=== PATIENT | male | born 1985 | race Caucasian/White ===

== ENCOUNTER 2023-10-04 00:57 | Emergency (ER) | payer OTHER, SELFPAY ==
[2023-10-04 01:00] VITALS: BP 118/72
[2023-10-04 01:05] VITALS: BMI 24.5
[2023-10-04] MEDS: PROTONIX 40 MG PO (01:27)
--- NOTE | 2023-10-04 01:47 | ED.GENMED ---
History of Present Illness
General
Chief Complaint: Allergic Reaction
Source: patient and records
Exam Limitations: none
Time Seen by Provider: 10/04/23 00:59
Nursing documentation reviewed up to this point in time: agreed with
Travel History
Have you had any contact with someone who has COVID-19?: No
Do you have any symptoms of coronavirus? Fever > 100 degrees, chills, cough, shortness of breath, sore throat, loss of taste or smell, muscle aches, or headache?: No
History of Present Illness
History of Present Illness:
38-year-old male with a past medical history of anxiety/depression and schizophrenia who is currently homeless presents to the emergency room for evaluation of chest discomfort after eating. He says that he thinks he could be allergic to every food
'except for hospital food' because he is having burning in his chest after eating. He says that 'every time I eat I get burning in the center of my chest, but funnily enough when I come to the hospital to eat I have no problem.' He has been seen
many times in the emergency room over the past month (10 visits in the past month)�he did have recent bout of COVID which he recovered from. He has been seen for this symptom before and has had negative workup including blood work and troponin. He
has been treated with PPI but has not taken it 'because I do not like to take medicine.' He denies any chest pain at present. He denies any exertional symptoms. He has not any other complaints including shortness of breath, cough, fever, leg pain
or swelling.
Past History
Past History
ED Past Medical History: Psychiatric
ED Past Surgical History: None
Social History
Tobacco: Former smoker
Alcohol: None
Drug: Marijuana (Medical marijuana)
Personal: Single
Living: homeless
Employment: Not employed
Family History
Family History: Other (Noncontributory)
Review of Systems
Review of Systems
All Other Systems: ROS reviewed and negative except as documented in HPI and ROS
Constitutional: Denies fever or chills
EENT: Denies sore throat
Respiratory: Denies cough or trouble breathing
Cardiac: Reports chest pain; Denies diaphoresis or palpitations
ABD/GI: Denies abdominal pain, nausea or vomiting
: Denies flank pain
Musculoskeletal: Denies neck pain or back pain
Neurological: Denies headache, weakness or numbness
Phy Exam
Physical Exam
Physical Exam:
General: Awake, alert, oriented x3; no acute distress
Head: Normocephalic, atraumatic
Eyes: Conjunctiva normal, sclera anicteric
Throat: Airway intact, handling secretions
Neck: Trachea midline, supple without meningismus
Lungs: Clear to auscultation bilaterally, no wheezing, rales, rhonchi
Heart: Regular rate and rhythm, no murmurs, gallops, or rubs
Abd: Soft, non distended, nontender
Neuro: Cranial nerves grossly intact, speech fluid
Skin: no rash
Extremities: Warm well-perfused, no edema
Scores
Heart Failure Risk
Heart Failure Risk Score: Not Applicable
Heart Score for Chest Pain Patients
STEMI patient?: Not applicable
Withdrawal Assessment of Alcohol
Withdrawal Assessment Completed?: Not applicable
Course
Orders/Labs/Results
Orders:
Orders
10/04/23 01:16
Electrocardiogram (*1) Urgent
Reason for Study: Chest Pain
EKG- Treatment ONCE
Pantoprazole [Protonix] 40 mg PO NOW STA
Vital Signs
Initial and Last Documented VS:
Initial Vital Signs
Temp Pulse Resp BP Pulse Ox
36.8 C 64 20 118/72 97
10/04/23 01:00 10/04/23 01:00 10/04/23 01:00 10/04/23 01:00 10/04/23 01:00
Last Documented Vital Signs
Temp Pulse Resp BP Pulse Ox
36.8 C 64 20 118/72 97
10/04/23 01:00 10/04/23 01:00 10/04/23 01:00 10/04/23 01:00 10/04/23 01:00
MDM/Problems Addressed
Differential Diagnosis Includes:
GERD, gastritis, esophagitis; clinical suspicion for ACS, PE, aortic dissection or other emergent pathology is so low that I do not think further emergent testing for these diagnoses is indicated especially given multiple recent workups for
identical symptoms which have been reassuring
MDM/Problems Addressed:
38-year-old male presents for evaluation of postprandial burning in the chest. He says that every time he eats food--other than hospital food--he gets burning in the center of his chest. He has been told that it could be related to GERD in the
past and has been prescribed a PPI but says he does not take it because he does not like to take medication. He has no symptoms at present. He is requesting food here. His vital signs are normal and his exam is benign. His EKG shows no
concerning changes. Reviewed labs from previous visits for identical symptoms and his workups have been reassuring including negative troponins, normal chest x-ray. His symptoms sound totally consistent with GERD/esophagitis. I do not think there
is any indication for emergent blood work at this point in time. I think that he needs to be treated with a PPI and I explained at length that the best way to prevent his symptoms is to be compliant with his regimen. He indicated understanding.
He states that he does have the means to obtain the medication. We had a long discussion about his current homelessness and living situation�he assures me that he is staying at the [facility] and has no issues there. Provided
food and drink which he tolerated here. All questions answered.
*Pulse Oximetry
Patient hypoxic: no
*EKG
Interpreted by ED Provider?: Yes
Heart Rate: 62
Rate: normal
Rhythm: sinus
[place]: normal axis
Interval: normal interval
QRS Pattern: normal QRS
Ischemia: no ischemia
*Critical Care Note
Total Time (30-74mins, 75-104mins- exclusive of procedures): Not Applicable
Data Reviewed
Review of Other/Old Records Reveals: Labs, Records and Radiology Studies
Source: patient and records
Further Testing Considered But Not Given:
Considered repeating lab work including CBC, CMP, lipase, troponin; considered chest x-ray
Patient Management
Social determinants of health affecting care: Living situation
ED Attending Note
-
Portions of this chart may have been created with voice recognition software.� Occasional wrong word or��sound alike� substitutions may have occurred due to the inherent limitations of voice recognition software.
Discharge Plan
Departure
Patient Disposition: Home (Routine Discharge)
Date of Disposition: 10/04/23
Time of Disposition: 01:46
Patient with high blood pressure during this ER visit?: No
Discharge Problem:
Heartburn
Instructions: Acid Reflux and GERD in Adults (DC)
Prescriptions:
New
pantoprazole 40 mg tablet,delayed release (DR/EC)
40 mg PO DAILY Qty: 30 0RF
No Action
levothyroxine [Levothroid] 50 MCG tablet
50 mcg PO Daily
doxycycline hyclate 100 MG capsule
100 mg PO Q12 Qty: 20 0RF
ibuprofen 600 MG tablet
600 mg PO Q6HPRN PRN (Reason: pain) Qty: 20 0RF
pantoprazole [Protonix] 20 mg tablet,delayed release (DR/EC)
20 mg PO DAILY Qty: 20 0RF
levothyroxine 50 mcg tablet
50 mcg PO DAILY Qty: 90 0RF
Referrals:
[facility] - Call in 1-3 days for appt (You should follow-up in the free clinic for continued management of your symptoms.)
NONE,* [Family Provider] -
Activity Restrictions/Additional Instructions:
Thank you for visiting the Emergency Department at [facility].
1. Please schedule a follow up appointment as directed. Call first thing tomorrow morning to make an appointment.
2. If indicated, please take your medications as instructed and indicated on discharge paperwork.
3. If any of your symptoms do not improve, or persist, or become more severe within 6-12 hours, please return to the emergency department for further care.
4. Please return to the emergency department if you develop a headache, neck pain/stiffness, fever greater than 100.4F, chest pain, shortness of breath, persistent nausea, vomiting, slurred speech, difficulty walking, numbness/tingling, weakness,
signs of infection or any other symptoms that are worrisome to you.
Please call [phone] if you have any questions.
Interventions
Interventions:
*Risk Screen - Suicide Last Done: 10/04/23 01:00
*General Assessment Last Done: 10/04/23 01:00
*Neglect/Abuse Screening Last Done: 10/04/23 01:00
ED- Fall Risk Assessment Last Done: 10/04/23 01:04
ED- Cardiac Assessment Last Done: 10/04/23 01:04
ED- Pulmonary Assessment Last Done: 10/04/23 01:04
ED-Skin Assessment Last Done: 10/04/23 01:04
== END 2023-10-04 02:08 | disposition home or self-care (01) ==
LOC: EMR 00:57
PROVIDERS: EMERGENCY PHYSICIAN Emergency Medicine
DX: R12 Heartburn (principal); Z87.891 Personal history of nicotine dependence; F20.9 Schizophrenia, unspecified; Z59.00 Homelessness unspecified
CPT/HCPCS: 99283; 93005

== ENCOUNTER 2023-10-11 18:36 | Emergency (ER) | payer OTHER, SELFPAY ==
--- NOTE | 2023-10-11 20:13 | ED.GENMED ---
History of Present Illness
General
Chief Complaint: Back Pain
Source: patient
Exam Limitations: none
Time Seen by Provider: 10/11/23 19:21
Travel History
Have you had any contact with someone who has COVID-19?: No
Do you have any symptoms of coronavirus? Fever > 100 degrees, chills, cough, shortness of breath, sore throat, loss of taste or smell, muscle aches, or headache?: No
History of Present Illness
History of Present Illness:
This is a 38 year old male that comes in with c/o left testicular pain. States that he has nerve damage in his back and there is muscle deterioration. States that when he runs it helps but sitting and walking he feels worse. state that he started
with this pinching groin pain behind the testicles and this has been going on since the summer. States that tonight it just got under his skin so he came in. Denies any fever, chills, chest pain, SOB, abd pain, nausea, vomiting, diarrhea, headache,
dizziness, urinary burning.
Past History
Past History
ED Past Medical History: Psychiatric (Anxiety, Depression. Denies PTSD and schizophrenia) and Other (Chronic back pain, L4-S1 nerve damage, DDD)
ED Past Surgical History: None
Social History
Tobacco: Former smoker
Alcohol: None
Drug: Marijuana (Medical marijuana)
Personal: Single
Living: homeless
Employment: Not employed
Family History
Family History: Other (Noncontributory)
Review of Systems
Review of Systems
All Other Systems: ROS reviewed and negative except as documented in HPI and ROS
Constitutional: Reports no symptoms; Denies fever or chills
EENT: Reports no symptoms
Respiratory: Reports no symptoms
Cardiac: Reports no symptoms
ABD/GI: Reports no symptoms; Denies abdominal pain, nausea, vomiting or diarrhea
: Reports other (Left testicular pain); Denies dysuria, frequency or urgency
Musculoskeletal: Reports no symptoms
Skin: Reports no symptoms
Neurological: Reports no symptoms; Denies dizzy or headache
Psychiatric: Reports no symptoms
Phy Exam
General Physical Exam
General Presentation: well appearing and no apparent distress (patient able to walk to another room for Testicular exam without difficulty)
General age: appears stated age
General Skin: warm and dry
General Habitus: poor hygiene
General Mental: alert
General Hydration: appears well hydrated
ENT Exam
ENT Exam: TM's normal, pharynx normal and neck supple
Eye Exam
Eye Exam: EOMI
Cardiovascular Exam
Cardiovascular Exam: regular rate/rhythm, no edema, no murmur and normal peripheral pulses
Pulmonary Exam
Pulmonary Exam: lungs clear, no respiratory distress, no rales, chest non tender, no crackles, no rhonchi, no wheezing and no cough
Gastrointestinal Exam
Gastrointestinal Exam: normal bowel sounds, non tender, soft, no organomegaly, no pulsatile mass and non distended
Genitourinary Exam Male
Exam Male: circumcised, no discharge, normal external genitalia, normal testicular exam, no evidence of trauma, no lesions, no testicular swelling and no testicular tenderness
Musculoskeletal Exam
Musculoskeletal Exam: full ROM and no edema
Skin Exam
Skin Exam: normal color, warm/dry, no rash and no petechia
Psychiatric Exam
Psychiatric Exam: normal mood/affect
Course
Orders/Labs/Results
Orders:
Orders
10/11/23 19:55
Scrotum US [US Scrotum] Urgent
Comment:
Reason For Exam: Left testicular pain
Vital Signs
Initial and Last Documented VS:
Initial Vital Signs
Temp Pulse Resp BP Pulse Ox
98.5 F 73 16 128/66 98
10/11/23 18:58 10/11/23 18:58 10/11/23 18:58 10/11/23 18:58 10/11/23 18:58
Last Documented Vital Signs
Temp Pulse Resp BP Pulse Ox
98.5 F 73 16 128/66 98
10/11/23 18:58 10/11/23 18:58 10/11/23 18:58 10/11/23 18:58 10/11/23 18:58
MDM/Problems Addressed
Differential Diagnosis Includes:
Epididymitis,
MDM/Problems Addressed:
This is a 38 year old male that comes in with c/o left testicular pain that started in the summer. states that tonight it just got under his skin so he thought he better get checked
will get US.
Back into see patient. Explained that he has very small hydroceles. Otherwise normal. Patient can follow up with the family doctor of a Urologist. Patient to return with any concerns
Chronic conditions affecting care:
NA
Acute Exacerbation and/or Progression of Chronic Illness:
NA
*Radiology
Radiology exam reviewed: radiology read reviewed (US-Moderate left and small right hydroceles. Small left appendix testes. No sonographic evidence for testicular torsion, orchitis or epididymitis)
*Pulse Oximetry
Patient hypoxic: no
*EKG
Interpreted by ED Provider?: NA
Rate: EKG- N/A
*Tug Boat Captain Interpretation
Rate: Tug Boat Captain- N/A
*Critical Care Note
Total Time (30-74mins, 75-104mins- exclusive of procedures): Not Applicable
ED Attending Note
-
Portions of this chart may have been created with voice recognition software.� Occasional wrong word or��sound alike� substitutions may have occurred due to the inherent limitations of voice recognition software.
Discharge Plan
Departure
Patient Disposition: Home (Routine Discharge)
Date of Disposition: 10/11/23
Time of Disposition: 21:51
Patient with high blood pressure during this ER visit?: No
Condition: Good
Covid-19: Not Applicable
Discharge Problem:
Hydrocele, left
Instructions: Hydrocele/Varicocele (DC)
Prescriptions:
No Action
levothyroxine [Levothroid] 50 MCG tablet
50 mcg PO Daily
doxycycline hyclate 100 MG capsule
100 mg PO Q12 Qty: 20 0RF
ibuprofen 600 MG tablet
600 mg PO Q6HPRN PRN (Reason: pain) Qty: 20 0RF
pantoprazole [Protonix] 20 mg tablet,delayed release (DR/EC)
20 mg PO DAILY Qty: 20 0RF
levothyroxine 50 mcg tablet
50 mcg PO DAILY Qty: 90 0RF
pantoprazole 40 mg tablet,delayed release (DR/EC)
40 mg PO DAILY Qty: 30 0RF
Referrals:
NONE,* [Family Provider] -
Activity Restrictions/Additional Instructions:
As discussed, you have Bilateral hydroceles. This can be a normal finding. Please follow up with the family doctor of the Urologist for further evaluation. You may use Ibuprofen 600mg every 6hours with food for pain. IF YOU HAVE ANY OTHER CONCERNS
PLEASE RETURN TO THE EMERGENCY ROOM.
Interventions
Interventions:
*Risk Screen - Suicide Last Done: 10/11/23 18:58
*Neglect/Abuse Screening Last Done: 10/11/23 18:58
[2023-10-11] MEDS: MOTRIN 600 MG PO (22:06)
== END 2023-10-11 22:08 | disposition home or self-care (01) ==
LOC: EMR 18:36
PROVIDERS: EMERGENCY PHYSICIAN Student in an Organized Health Care Education/Training Program
DX: N43.3 Hydrocele, unspecified (principal); F41.9 Anxiety disorder, unspecified; F32.A Depression, unspecified; Z87.891 Personal history of nicotine dependence
CPT/HCPCS: 99284; 76870; 93976

== ENCOUNTER 2023-10-12 10:45 | Emergency (ER) | payer OTHER, SELFPAY ==
[2023-10-12 10:50] VITALS: BP 133/74
--- NOTE | 2023-10-12 12:59 | ED.GENMED ---
History of Present Illness
General
Chief Complaint: Male Genito-Urinary Symptoms
Source: patient
Exam Limitations: none
Time Seen by Provider: 10/12/23 12:41
Travel History
Have you had any contact with someone who has COVID-19?: No
Do you have any symptoms of coronavirus? Fever > 100 degrees, chills, cough, shortness of breath, sore throat, loss of taste or smell, muscle aches, or headache?: No
History of Present Illness
History of Present Illness:
38-year-old male presents for evaluation. He was here last evening for the same with testicular discomfort. Diagnosed with hydrocele. He is looking for us to examine drainage today. No other complaints at this time
Past History
Past History
ED Past Medical History: Psychiatric (Anxiety, Depression. Denies PTSD and schizophrenia) and Other (Chronic back pain, L4-S1 nerve damage, DDD)
ED Past Surgical History: None
Social History
Tobacco: Former smoker
Alcohol: None
Drug: Marijuana (Medical marijuana)
Personal: Single
Living: homeless
Employment: Not employed
Family History
Family History: Other (Noncontributory)
Phy Exam
Physical Exam
Physical Exam:
General: Well-appearing male no acute respiratory distress
HEENT: Normocephalic atraumatic
Neurologic alert normal gait conversing appropriately
Course
Orders/Labs/Results
Orders:
Orders
10/12/23 12:59
Ibuprofen [Motrin] 600 mg PO NOW STA
Vital Signs
Initial and Last Documented VS:
Initial Vital Signs
Temp Pulse Resp BP Pulse Ox
98.4 F 74 16 133/74 98
10/12/23 10:50 10/12/23 10:50 10/12/23 10:50 10/12/23 10:50 10/12/23 10:50
Last Documented Vital Signs
Temp Pulse Resp BP Pulse Ox
98.4 F 74 16 133/74 98
10/12/23 10:50 10/12/23 10:50 10/12/23 10:50 10/12/23 10:50 10/12/23 10:50
MDM/Problems Addressed
Differential Diagnosis Includes:
Review of prior records demonstrates moderate left and small right hydrocele. Explained to patient there is no emergent procedure that indicated through the emergency room. He states has been dealing with this for several months. Recommended
scrotal support with tight fitting underwear ibuprofen for pain and follow-up with urology. Stable for discharge. Symptoms are not new or different in any way from yesterday
*Critical Care Note
Total Time (30-74mins, 75-104mins- exclusive of procedures): Not Applicable
ED Attending Note
-
Portions of this chart may have been created with voice recognition software.� Occasional wrong word or��sound alike� substitutions may have occurred due to the inherent limitations of voice recognition software.
Discharge Plan
Departure
Patient Disposition: Home (Routine Discharge)
Date of Disposition: 10/12/23
Time of Disposition: 13:01
Patient with high blood pressure during this ER visit?: No
Discharge Problem:
Hydrocele
Prescriptions:
No Action
levothyroxine [Levothroid] 50 MCG tablet
50 mcg PO Daily
doxycycline hyclate 100 MG capsule
100 mg PO Q12 Qty: 20 0RF
ibuprofen 600 MG tablet
600 mg PO Q6HPRN PRN (Reason: pain) Qty: 20 0RF
pantoprazole [Protonix] 20 mg tablet,delayed release (DR/EC)
20 mg PO DAILY Qty: 20 0RF
levothyroxine 50 mcg tablet
50 mcg PO DAILY Qty: 90 0RF
pantoprazole 40 mg tablet,delayed release (DR/EC)
40 mg PO DAILY Qty: 30 0RF
Referrals:
Harjinder Mckeon MD [Active] -
NONE,* [Family Provider] -
Activity Restrictions/Additional Instructions:
Use tight fitting underwear for scrotal support. Continue with Tylenol or ibuprofen for pain. Follow-up with urology for further evaluation
Interventions
Interventions:
*Risk Screen - Suicide Last Done: 10/12/23 12:24
*General Assessment Last Done: 10/12/23 12:24
*Neglect/Abuse Screening Last Done: 10/12/23 12:24
*ED COVID-19 Vaccine History Last Done: 10/12/23 10:50
ED-Male Genitourinary Assessment Last Done: 10/12/23 12:24
[2023-10-12] MEDS: MOTRIN 600 MG PO (13:17)
[2023-10-12 14:03] VITALS: BP 109/56
[2023-10-12 14:04] VITALS: BP 109/56
== END 2023-10-12 15:17 | disposition home or self-care (01) ==
LOC: EMR 10:45
PROVIDERS: EMERGENCY PHYSICIAN Emergency Medicine
DX: N43.3 Hydrocele, unspecified (principal); F41.8 Other specified anxiety disorders; Z87.891 Personal history of nicotine dependence
CPT/HCPCS: 99282

== ENCOUNTER 2023-11-14 08:20 | Inpatient (IN) | payer OTHER, SELFPAY ==
[2023-11-11] VITALS (12 sets, daily range): BP systolic 80–122; BP diastolic 40–64; PULSE 90–94; BMI 22.4
[2023-11-11 15:11] LABS: % Basophils 0.1 % (0-2); % Eosinophils 0.4 % (0-6); % Immature Granulocytes 0.1 % (0-0.5); % Lymphocytes 1.6 % (20.5-51.1); % Monocytes 5.4 % (1.7-9.3); % Neutrophils 92.4 % (42.2-75.2); Absolute Lymphocytes 0.1 10^3/uL (1.2-3.4); Absolute Monocytes 0.4 10^3/uL (0.1-0.6); Absolute Neutrophils 6.5 10^3/uL (1.4-6.5); Hematocrit 42.6 % (39.0-52.0); Hemoglobin 15.3 g/dL (13.0-18.0); Mean Corp Hgb Conc. 35.9 g/dL (33.0-37.0); Mean Corpuscular Hgb 28.9 pg (27.0-31.0); Mean Corpuscular Volume 80.4 fL (80.0-94.0); Mean Platelet Volume 9.7 fL (7.4-10.4); Nucleated Red Blood Cells % 0 % (-); Platelet Count 233 10^3/uL (130-400); Red Cell Dist. Width 12.9 % (11.5-14.5); White Blood Cell Count 7.1 10^3/uL (4.8-10.8)
[2023-11-11 15:32] LABS: ALT (SGPT) 13 U/L (0-50); AST (SGOT) 26 U/L (17-59); Albumin 4.8 g/dl (3.5-5.0); Alkaline Phosphatase 51 U/L (38-126); Blood Urea Nitrogen 31 mg/dl (9-20); Calcium 9.2 mg/dl (8.4-10.2); Carbon Dioxide 25 mmol/L (22-30); Chloride 105 mmol/L (98-107); Glucose 111 mg/dl (70-99); Potassium 4.4 mmol/L (3.5-5.1); Sodium 139 mmol/L (135-145); Total Bilirubin 1.4 mg/dl (0.2-1.3); Total Protein 7.4 g/dl (6.3-8.2); eGFR > 60.00
--- NOTE | 2023-11-11 15:58 | ED.GENMED ---
History of Present Illness
General
Chief Complaint: Fainting Sensation
Source: patient
Exam Limitations: none
Time Seen by Provider: 11/11/23 15:08
Nursing documentation reviewed up to this point in time: agreed with
Travel History
Have you had any contact with someone who has COVID-19?: No
Do you have any symptoms of coronavirus? Fever > 100 degrees, chills, cough, shortness of breath, sore throat, loss of taste or smell, muscle aches, or headache?: No
History of Present Illness
History of Present Illness:
38-year-old male presents emergency department due to feeling lightheaded with a low blood pressure, he thinks he had a syncope episode. He was at the urology office to be seen for a known hydrocele. He has chills. He has bodyaches. No focal
pain.
Past History
Past History
ED Past Medical History: Psychiatric (Anxiety, Depression. Denies PTSD and schizophrenia) and Other (Chronic back pain, L4-S1 nerve damage, DDD)
ED Past Surgical History: None
Social History
Tobacco: Former smoker
Alcohol: None
Drug: Marijuana (Medical marijuana)
Personal: Single
Living: homeless
Employment: Not employed
Family History
Family History: Other (Noncontributory)
Review of Systems
Review of Systems
Allergies reviewed?: Yes
All Other Systems: Not applicable
Constitutional: Reports chills
EENT: Reports no symptoms
Respiratory: Reports no symptoms
Cardiac: Reports syncope
ABD/GI: Reports nausea and vomiting
: Reports no symptoms
Musculoskeletal: Reports muscle pain
Skin: Reports no symptoms
Neurological: Reports no symptoms
Endocrine: Reports no symptoms
Hematologic/Lymphatic: Reports no symptoms
Psychiatric: Reports no symptoms
Phy Exam
Physical Exam
Physical Exam:
Physical Exam
General: Shivering, appears uncomfortable, afebrile
Neck: supple. no meningeal signs. normal posterior pharynx
Heart: s1/s2 regular rate and rhythm, no murmur. equal radial
pulses.
HEENT: Pupils equal round reactive to light, EOMI
Lungs: no acute respiratory distress. clear bilaterally
Abdomen: normal bowel sounds. not tender. no CVAT
Neuro: alert and oriented. no focal neurological deficits cranial nerves II through XII intact
Skin: no rash
Psychiatric: well kept. interactive and cooperative
Extremities: no edema. no calf tenderness. negative homans. good distal pulses
Course
Orders/Labs/Results
Orders:
Orders
11/11/23 14:59
EKG [Electrocardiogram (*1)] Urgent
Reason for Study: Fatigue / Weakness
11/11/23 15:00
EKG- Treatment ONCE
11/11/23 15:05
Complete Blood Count/With Diff Urgent
Comprehensive Metabolic Panel Urgent
11/11/23 15:36
Lactic Acid Q4H
Comment: CANCEL 2nd LACTIC ACID IF 1st LACTIC ACID IS LESS THAN 2
Blood Culture Q30M
SAMANTHA Source: Blood/Venous
Specimen Description:
11/11/23 15:37
COVID-19 Antigen Urgent
Source: Nasal Swab
Blood Culture Q30M
SAMANTHA Source: Blood/Venous
Specimen Description:
Influenza A+B Rapid Molecular Urgent
SAMANTHA Source: Nasal Swab
Specimen Description:
11/11/23 16:11
CR Chest - 2 Views Urgent
Comment:
Reason For Exam: chills, syncope
11/11/23 17:03
0.9% Sodium Chloride 1000 ml [Nss] 1,000 ml IV BOLUS
Acetaminophen [Tylenol] 650 mg PO NOW STA
11/11/23 19:28
Urinalysis Reflex To Culture Urgent
Date Specimen was Collected: 11/11/23
Time Specimen was Collected: 19:22
11/11/23 20:20
0.9% Sodium Chloride 1000 ml [Nss] 1,000 ml IV BOLUS
11/11/23 20:33
Admit/Transfer Patient As Directed
Co-Sign Provider:
Level of Care: Observation services
Assign to:: Telemetry
Physician / Group: Milton
Diagnosis: Syncope; Fever
Reason for Telemetry: Syncope
Date to Stop Telemetry: 11/13/23
Time to Stop Telemetry: 11:00
11/11/23 20:34
Code Status As Directed
Resuscitation Status: Full Code
11/11/23 20:57
Giardia/Cryptosporidium Ag Urgent
SAMANTHA Source: Feces/Stool
Specimen Description:
Norovirus by PCR Urgent
SAMANTHA Source: Feces/Stool
Specimen Description:
Stool Culture Urgent
SAMANTHA Source: Feces/Stool
Specimen Description:
Stool For WBC Urgent
SAMANTHA Source: Feces/Stool
Specimen Description:
11/13/23 11:00
DC Protocol for Telemetry ONCE
Abnormal Lab Results
11/11/23 11/11/23
15:05 19:28
Absolute Lymphs (auto) 0.1 L 10^3/uL
(1.2-3.4)
Neutrophils % 92.4 H %
(42.2-75.2)
Lymphocytes % 1.6 L %
(20.5-51.1)
BUN 31 H mg/dl
(9-20)
Glucose 111 H mg/dl
(70-99)
Total Bilirubin 1.4 H mg/dl
(0.2-1.3)
Urine Ketones 3+ A
(Negative)
Urine Bilirubin 1+ A
(Negative)
11/11/23 15:05
11/11/23 15:05
Vital Signs
Initial and Last Documented VS:
Initial Vital Signs
Temp Pulse Resp BP Pulse Ox
98.0 F 89 18 80/47 100
11/11/23 14:33 11/11/23 14:33 11/11/23 14:33 11/11/23 14:33 11/11/23 14:33
Last Documented Vital Signs
Temp Pulse Resp BP Pulse Ox
101.7 F H 72 17 94/40 93
11/11/23 17:02 11/11/23 22:30 11/11/23 22:30 11/11/23 22:06 11/11/23 22:30
MDM/Problems Addressed
Differential Diagnosis Includes:
Sepsis, gastroenteritis, syncope, hypovolemia
MDM/Problems Addressed:
38-year-old male with hypovolemia, nausea vomiting, suspect possible GI virus as source of fever, no other focal infectious source found. No dysrhythmia, suspect syncope was related to patient hypovolemia. Admit to hospitalist
Chronic conditions affecting care: Psychiatric illness
Acute Exacerbation and/or Progression of Chronic Illness: Psychiatric illness (Anxiety, depression PTSD, schizophrenia)
*Radiology
Radiology exam reviewed: preliminary read by ED provider (Chest x-ray no acute findings) and radiology read reviewed (Chest x-ray no acute)
*Pulse Oximetry
Patient hypoxic: no
*EKG
Interpreted by ED Provider?: Yes
EKG Intrepretation Date: 11/11/23
EKG Intrepretation Time: 15:09
Interpretation: normal
Comparison EKG: no changes
Heart Rate: 84
Rate: normal
Rhythm: sinus
[place]: normal axis
Interval: normal interval
QRS Pattern: normal QRS
Ischemia: no ischemia
*Patient Biller Interpretation
Rate: normal
Interpretation: normal
Heart Rate: 80
Rhythm: sinus
*Critical Care Note
Total Time (30-74mins, 75-104mins- exclusive of procedures): Not Applicable
Patient Management
Social determinants of health affecting care: Living situation
Discussion with other providers: Hospitalist
Escalation/DeEscalation of care consider admission/obs:
Admit indicated
ED Attending Note
-
Portions of this chart may have been created with voice recognition software.� Occasional wrong word or��sound alike� substitutions may have occurred due to the inherent limitations of voice recognition software.
Discharge Plan
Departure
Patient Disposition: Admit
Date of Disposition: 11/11/23
Time of Disposition: 19:41
Presentation/result/management discussed w/ accepting MD/DO: Hospitalist
Patient with high blood pressure during this ER visit?: No
Condition: Fair
Discharge Problem:
Syncope, Fever
Interventions
Interventions:
*Risk Screen - Suicide Last Done: 11/11/23 16:05
*Neglect/Abuse Screening Last Done: 11/11/23 16:05
*ED COVID-19 Vaccine History Last Done: 11/11/23 14:33
ED- Cardiac Assessment Last Done: 11/11/23 15:16
ED- Neurological Assessment Last Done: 11/11/23 15:16
[2023-11-11 15:59] LABS: Lactic Acid 1.2 mmol/L (0.7-2.0)
[2023-11-11 16:02] LABS: COVID-19 Antigen Negative (Negative)
[2023-11-11] MEDS: TYLENOL 650 MG PO (17:07)
[2023-11-11] MEDS: NSS 1000 IV ×3 (17:10→23:37)
[2023-11-11 19:38] LABS: Urine Albumin Negative (Neg - Trace); Urine Bilirubin 1+ (Negative); Urine Character Clear (Clear); Urine Color Yellow; Urine Glucose Negative (Negative); Urine Ketone 3+ (Negative); Urine Leukocyte Negative (Negative); Urine Nitrite Negative (Negative); Urine Occult Blood Negative (Negative); Urine Specific Gravity 1.015 (<1.030); Urine Urobilinogen Negative (Neg - 1+)
--- NOTE | 2023-11-11 20:58 | HPS.HSE ---
Addendum entered and electronically signed by Jono Rose DO 11/11/23 21:40:
Patient seen and examined independently. Agree with findings and plan as set forth by Cinda Truong PA-C.
Patient is a 38y M with PMH significant for Schizophrenia who presents to ED following syncopal episode. Patient states that he developed myalgias, fatigue and profuse N/V/D starting this AM. He reports innumerable episodes of emesis and loose
/ watery / non-bloody stools since that time. He was at a doctor's visit this afternoon when he became lightheaded and had a syncopal episode in their office. He was sent to the ED for further evaluation.
Ass:
Syncope - Likely Orthostatic +/- Vasovagal
Gastroenteritis
Hypovolemia secondary to the above
Hydrocele
Schizophrenia
Plan:
Admit for further evaluation and treatment.
Aggressive IVF support.
Follow orthostatic signs.
Check stool studies - suspect Norovirus or similar.
Follow for clinical improvement.
Original Note:
Family Physician
-
Family Physician: * NONE
Chief Complaint
-
Syncope
History of Present Illness
Patient is a 38 y/o male with PMH of B/L scrotal hydroceles who presents complaining of nausea, vomiting, diarrhea, fever, lightheadedness, and body aches since this morning. Patient states that all of his symptoms began after eating an packaged
apple/oatmeal bar at the [facility] early this morning. Shortly after he developed vomiting with profuse non-bloody diarrhea. He reports an innumerable number of episodes. He proceeded to get on a bus to the [place] urology office for an
appointment regarding hydroceles as he had already had reschedule the appointment multiple times. When he arrived at the urology office he nearly passed out. Office staff found his blood pressure to be low and sent him to the ED via ambulance. He
admits that dizziness has not subsided and he feels mild abdominal pain. He denies confusion, palpitations, chest pain, and SOB.
Medical History
Past Medical History
Past Medical History: Reports None
Past Surgical History: Reports None
Social History
Tobacco: Non-smoker
Alcohol: None
Drug: None
Family History
Family History: Not pertinent
Allergies / Home Medications
Allergies reflects when Allergies were last updated in [facility].
Home Medications with original date entered in [facility]
Allergy/Medication List:
Allergies
Allergy/AdvReac Type Severity Reaction Status Date / Time
adhesive Allergy Swelling Verified 11/11/23 14:37
Home Medications
No Meds [No Current Medications] 11/11/23
Review of Systems
-
A 12 point ROS was completed and negative except as noted: Yes
Constitutional: Reports Fever
Respiratory: Denies Cough or Trouble Breathing
Cardiac: Denies Chest Pain or Palpitations
Abdomen/GI: Reports See HPI
Physical Exam
Vital Signs
Vital Signs
Temp Pulse Resp BP Pulse Ox
101.7 F H 80 21 95/40 93
11/11/23 17:02 11/11/23 16:15 11/11/23 16:15 11/11/23 20:00 11/11/23 20:45
Physical Exam
General: Comfortable and Conversant
HEENT: NormoCephalic and Anicteric
Respiratory: Clear and Non Labored Respirations
Cardiac: S1/S2 and Regular Rhythm
GI: Soft and Non Tender
Rectal: Deferred by Provider
Genito-urinary: Deferred by me
Musculoskeletal: Clubbing, No Clubbing, No Cyanosis and No Edema
Skin: Warm and Dry
Neuro: Awake, Alert, Oriented and Nonfocal/grossly intact
Laboratory Results
-
11/11/23 15:05
11/11/23 15:05
Laboratory Results
Lactic Acid 1.2 mmol/L (0.7-2.0) 11/11/23 15:36
Total Bilirubin 1.4 mg/dl (0.2-1.3) H 11/11/23 15:05
AST 26 U/L (17-59) 11/11/23 15:05
ALT 13 U/L (0-50) 11/11/23 15:05
Alkaline Phosphatase 51 U/L (38-126) 11/11/23 15:05
Data Reviewed
-
Diagnostic Radiology: Report Reviewed by me
Lab Data: Labs Reviewed by me
Impression/Plan
-
Gastroenteritis, suspect viral in nature
-Check stool studies including norovirus
-Allow clear liquids
-Continue supportive care with IVFs
Syncope secondary to Hypotension in setting of GI losses
-Continue IVFs
-Monitor blood pressure and orthostatic vital signs
DVT proph: SCDs
Code Status: Full Code
--- NOTE | 2023-11-12 00:30 | PTCARENOTE ---
Pt arrived onto unit on r.a and on tele, pt was able to walk from stretcher to standing scale and then to bed, pt is in bed resting, call rosas is in reach, will continue to monitor.
[2023-11-12] MEDS: TYLENOL 650 MG PO (02:59)
[2023-11-12 03:00] VITALS: BP 100/49
[2023-11-12 04:50] LABS: Hematocrit 34.7 % (39.0-52.0); Hemoglobin 12.3 g/dL (13.0-18.0); Mean Corp Hgb Conc. 35.4 g/dL (33.0-37.0); Mean Corpuscular Hgb 28.7 pg (27.0-31.0); Mean Corpuscular Volume 80.9 fL (80.0-94.0); Platelet Count 187 10^3/uL (130-400); Red Blood Cell Count 4.29 10^6/uL (4.70-6.10)
[2023-11-12 05:13] LABS: Blood Urea Nitrogen 19 mg/dl (9-20); Calcium 7.9 mg/dl (8.4-10.2); Carbon Dioxide 25 mmol/L (22-30); Chloride 104 mmol/L (98-107); Estimated Creatinine Clearance 103 ml/min; Glucose 97 mg/dl (70-99); Potassium 3.4 mmol/L (3.5-5.1); Sodium 136 mmol/L (135-145); eGFR > 60.00
[2023-11-12 05:48] VITALS: BMI 22.4
[2023-11-12 06:14] LABS: Free T4 0.65 ng/dl (0.78-2.19)
[2023-11-12 07:30] VITALS: BP 106/55
[2023-11-12] MEDS: KCL 20 MEQ PO (09:22)
[2023-11-12] MEDS: NSS 1000 IV ×2 (09:23→17:55)
[2023-11-12 11:30] VITALS: BP 106/59
--- NOTE | 2023-11-12 11:50 | W.PN.HOSP.TC ---
Addendum entered and electronically signed by Zachariah Camarena MD 11/12/23 12:05:
TSH 11.6 with low free T4. Will start Synthroid.
Original Note:
Today's Communication/Plan
-
Monitor vital signs and see plan
Continue with fluids
If symptoms do not improve then will get CT abdomen/pelvis
Replete potassium
Continue clears for now
Assessment / Plan
Assessment / Plan
General: Comfortable and Conversant
HEENT: NormoCephalic and Anicteric
Respiratory: Clear and Non Labored Respirations
Cardiac: S1/S2 and Regular Rhythm
GI: Soft and Non Tender
Musculoskeletal: No Edema
Neuro: Awake, Alert, Oriented and Nonfocal/grossly intact
Gastroenteritis, suspect viral in nature
could also be foodborne illness as started after he had food at [place]
-Check stool studies including norovirus
-Allow clear liquids
-Continue supportive care with IVFs
Follow fever curve, if symptoms do not improve then will get CT abdomen/pelvis
Hypokalemia
Replete
Syncope secondary to Hypotension in setting of GI losses
-Continue IVFs
-Monitor blood pressure and orthostatic vital signs
DVT proph: SCDs
Code Status: Full Code
Anticipated Discharge: Within 24 hours
Subjective/Interval History
-
Date of Service: November 12, 2023
feeling little better
Objective Data
-
Labs:
Laboratory Results
11/12/23
04:25
WBC 5.0
Hgb 12.3 L
Hct 34.7 L
Plt Count 187
Sodium 136
Potassium 3.4 L
Chloride 104
Carbon Dioxide 25
BUN 19
Creatinine 0.9
Glucose 97
Calcium 7.9 L
Vital Signs:
Vital Signs
Temp Pulse Resp BP Pulse Ox
98.9 F 71 17 106/59 99
11/12/23 11:30 11/12/23 11:30 11/12/23 11:30 11/12/23 11:30 11/12/23 11:30
[2023-11-12 15:58] VITALS: BP 97/66
[2023-11-12 15:59] VITALS: BP 97/55; BP 98/64; PULSE 78; PULSE 80
--- NOTE | 2023-11-12 16:05 | CM ---
Alert awake oriented patient who lives with his mom lEiza who lives in a 1 story home with 6 step to enter. He is independent in all activities of daily living.He was offered VN he declined need.He said he [place] bus home [place].He said he does not
want family involved in care.Observation letter reviewed with patient . Letter on chart he did not want to sign.
No VN hx / No SNF history
Pharmacy [facility]
PCP Has none . He declined a PCP list he said he will call insurance and ask for a lkist.
PLAN Home Declined VN
[2023-11-12 20:21] VITALS: BP 112/65; BP 113/66; PULSE 64; PULSE 66
[2023-11-13] VITALS (8 sets, daily range): BP systolic 102–126; BP diastolic 54–93; PULSE 56–71; BMI 22.4
[2023-11-13] MEDS: NSS 1000 IV ×3 (01:25→17:41)
[2023-11-13] MEDS: MAALOX 30 ML PO (01:25)
[2023-11-13] MEDS: SYNTHROID 25 MCG PO (05:52)
[2023-11-13 09:14] LABS: Hematocrit 33.2 % (39.0-52.0); Hemoglobin 11.5 g/dL (13.0-18.0); Mean Corp Hgb Conc. 34.6 g/dL (33.0-37.0); Mean Corpuscular Hgb 28.4 pg (27.0-31.0); Mean Platelet Volume 10.5 fL (7.4-10.4); Platelet Count 171 10^3/uL (130-400); Red Blood Cell Count 4.05 10^6/uL (4.70-6.10); Red Cell Dist. Width 12.7 % (11.5-14.5)
[2023-11-13 09:39] LABS: Blood Urea Nitrogen 7 mg/dl (9-20); Calcium 8.3 mg/dl (8.4-10.2); Carbon Dioxide 26 mmol/L (22-30); Chloride 106 mmol/L (98-107); Estimated Creatinine Clearance 116 ml/min; Glucose 93 mg/dl (70-99); Potassium 3.7 mmol/L (3.5-5.1); Sodium 138 mmol/L (135-145); eGFR > 60.00
[2023-11-13] MEDS: OMNIPAQUE 50 ML PO (11:34)
--- NOTE | 2023-11-13 12:09 | W.PN.HOSP.TC ---
Today's Communication/Plan
-
monitor vitals
see plan
check CT abdomen/pelvis
fulls for now
Assessment / Plan
Assessment / Plan
General: Comfortable and Conversant
HEENT: NormoCephalic and Anicteric
Respiratory: Clear and Non Labored Respirations
Cardiac: S1/S2 and Regular Rhythm
GI: Soft and Non Tender
Musculoskeletal: No Edema
Neuro: Awake, Alert, Oriented and Nonfocal/grossly intact
Gastroenteritis, suspect viral in nature
could also be foodborne illness as started after he had food at [place]
-Check stool studies including norovirus
-advance to fulls
-Continue supportive care with IVFs
Follow fever curve,still has significant nausea with some abdominal pain; check CT abdomen/pelvis
Hypokalemia
Replete
Syncope secondary to Hypotension in setting of GI losses
-Continue IVFs
-Monitor blood pressure and orthostatic vital signs
DVT proph: SCDs
Code Status: Full Code
Anticipated Discharge: Within 24 hours
Subjective/Interval History
-
Date of Service: November 13, 2023
does have nausea
Objective Data
-
Labs:
Laboratory Results
11/13/23
08:31
WBC 3.0 L
Hgb 11.5 L
Hct 33.2 L
Plt Count 171
Sodium 138
Potassium 3.7
Chloride 106
Carbon Dioxide 26
BUN 7 L
Creatinine 0.8
Glucose 93
Calcium 8.3 L
Vital Signs:
Vital Signs
Temp Pulse Resp BP Pulse Ox
98.0 F 55 16 110/70 100
11/13/23 11:14 11/13/23 11:14 11/13/23 11:14 11/13/23 11:14 11/13/23 11:14
I&O
11/12/23 11/13/23 11/14/23
06:59 06:59 06:59
Intake Total 2519 / 2519
Output Total 650 / 650
Balance 1869
[2023-11-13 12:54] LABS: Atypical Lymphocytes 9 %; Band Neutrophils 2 % (0-3); Eosinophils 1 % (0-6); Lymphocytes 44 % (20-51); Monocytes 8 % (2-9); Normal RBC Morphology Yes; Segmented Neutrophils 34 % (42-75); Total Cells Counted 100
[2023-11-13 12:55] LABS: Platelets Checked Yes
[2023-11-14 03:30] VITALS: BP 104/53; BP 110/62; BP 127/84; PULSE 48; PULSE 51; PULSE 70
[2023-11-14] MEDS: NSS 1000 IV ×2 (03:31→09:30)
[2023-11-14 06:00] VITALS: BMI 22.2
[2023-11-14] MEDS: SYNTHROID 25 MCG PO (06:16)
[2023-11-14 07:40] VITALS: BP 125/74
[2023-11-14 08:45] LABS: % Basophils 0.3 % (0-2); % Eosinophils 3.4 % (0-6); % Lymphocytes 35.3 % (20.5-51.1); % Monocytes 9.7 % (1.7-9.3); % Neutrophils 51.3 % (42.2-75.2); Absolute Eosinophils 0.1 10^3/uL (0-0.7); Absolute Lymphocytes 1.1 10^3/uL (1.2-3.4); Absolute Monocytes 0.3 10^3/uL (0.1-0.6); Absolute Neutrophils 1.6 10^3/uL (1.4-6.5); Hematocrit 34.7 % (39.0-52.0); Hemoglobin 12.1 g/dL (13.0-18.0); Mean Corp Hgb Conc. 34.9 g/dL (33.0-37.0); Mean Corpuscular Hgb 28.5 pg (27.0-31.0); Mean Corpuscular Volume 81.8 fL (80.0-94.0); Mean Platelet Volume 11.1 fL (7.4-10.4); Nucleated Red Blood Cells % 0 % (-); Platelet Count 189 10^3/uL (130-400); Red Blood Cell Count 4.24 10^6/uL (4.70-6.10); Red Cell Dist. Width 12.8 % (11.5-14.5); White Blood Cell Count 3.2 10^3/uL (4.8-10.8)
[2023-11-14 09:16] LABS: Blood Urea Nitrogen 5 mg/dl (9-20); Calcium 8.6 mg/dl (8.4-10.2); Carbon Dioxide 30 mmol/L (22-30); Chloride 104 mmol/L (98-107); Estimated Creatinine Clearance > 125 ml/min; Glucose 90 mg/dl (70-99); Potassium 3.9 mmol/L (3.5-5.1); Sodium 140 mmol/L (135-145); eGFR > 60.00
--- NOTE | 2023-11-14 12:00 | W.PN.HOSP.TC ---
Today's Communication/Plan
-
Monitor vital signs and see plan
Discharge likely today
LRD
Assessment / Plan
Assessment / Plan
General: Comfortable and Conversant
HEENT: NormoCephalic and Anicteric
Respiratory: Clear and Non Labored Respirations
Cardiac: S1/S2 and Regular Rhythm
GI: Soft and Non Tender
Musculoskeletal: No Edema
Neuro: Awake, Alert, Oriented and Nonfocal/grossly intact
Acute Gastroenteritis 2/2 norovirus
-Check stool studies including norovirus
-advance to LRD; if tolerates then dc
-Continue supportive care with IVFs
Follow fever curve
CT consistent with enteritis
Hypokalemia
improved
Syncope secondary to Hypotension in setting of GI losses
-Continue IVFs
-Monitor blood pressure and orthostatic vital signs
DVT proph: SCDs
Code Status: Full Code
Anticipated Discharge: Today
Subjective/Interval History
-
Date of Service: November 14, 2023
slowly improving
Objective Data
-
Labs:
Laboratory Results
11/14/23
07:07
WBC 3.2 L
Hgb 12.1 L
Hct 34.7 L
Plt Count 189
Sodium 140
Potassium 3.9
Chloride 104
Carbon Dioxide 30
BUN 5 L
Creatinine 0.6 L
Glucose 90
Calcium 8.6
Vital Signs:
Vital Signs
Temp Pulse Resp BP Pulse Ox
97.9 F 50 14 125/74 99
11/14/23 07:40 11/14/23 07:40 11/14/23 07:40 11/14/23 07:40 11/14/23 07:40
I&O
03/01/24 03/02/24 03/03/24
06:59 06:59 06:59
Intake Total 2520 / 2520 2200 / 2200 615 / 615
Output Total 650 / 650 600 / 600
Balance 1870 / 1870 1600 / 1600 615 / 615
[2023-11-14 15:40] VITALS: BP 120/72
[2023-11-14 16:58] VITALS: BP 123/70; BP 124/74; BP 126/60; PULSE 52; PULSE 69; PULSE 75
[2023-11-14] MEDS: NSS IV (17:32)
[2023-11-14 23:40] VITALS: BP 115/70
[2023-11-15 06:00] VITALS: BMI 22.6
[2023-11-15] MEDS: SYNTHROID 25 MCG PO (06:12)
[2023-11-15 07:40] VITALS: BP 109/77
[2023-11-15 09:21] LABS: % Eosinophils 2.4 % (0-6); % Immature Granulocytes 0.5 % (0-0.5); % Lymphocytes 30.9 % (20.5-51.1); % Monocytes 9.3 % (1.7-9.3); % Neutrophils 56.9 % (42.2-75.2); Absolute Eosinophils 0.1 10^3/uL (0-0.7); Absolute Lymphocytes 1.2 10^3/uL (1.2-3.4); Absolute Monocytes 0.4 10^3/uL (0.1-0.6); Absolute Neutrophils 2.1 10^3/uL (1.4-6.5); Hematocrit 37.1 % (39.0-52.0); Hemoglobin 12.8 g/dL (13.0-18.0); Mean Corp Hgb Conc. 34.5 g/dL (33.0-37.0); Mean Corpuscular Hgb 28.1 pg (27.0-31.0); Mean Corpuscular Volume 81.4 fL (80.0-94.0); Mean Platelet Volume 10.8 fL (7.4-10.4); Nucleated Red Blood Cells % 0 % (-); Platelet Count 234 10^3/uL (130-400); Red Blood Cell Count 4.56 10^6/uL (4.70-6.10); Red Cell Dist. Width 12.6 % (11.5-14.5); White Blood Cell Count 3.8 10^3/uL (4.8-10.8)
[2023-11-15 09:53] LABS: Blood Urea Nitrogen 14 mg/dl (9-20); Calcium 8.5 mg/dl (8.4-10.2); Carbon Dioxide 28 mmol/L (22-30); Chloride 103 mmol/L (98-107); Estimated Creatinine Clearance 117 ml/min; Glucose 80 mg/dl (70-99); Potassium 3.7 mmol/L (3.5-5.1); Sodium 138 mmol/L (135-145); eGFR > 60.00
--- NOTE | 2023-11-15 11:17 | W.PN.HOSP.TC ---
Addendum entered and electronically signed by Zachariah Camarena MD 11/15/23 11:23:
TSH elevated with low free t4
TSH was much higher before, unclear if patient is compliant with his medications
Started Synthroid, repeat TSH with reflex to T4 outpatient in 4 weeks with primary care provider
Original Note:
Today's Communication/Plan
-
Monitor vital signs and see plan
Discharge today
Time of discharge 36 minutes
Assessment / Plan
Assessment / Plan
General: Comfortable and Conversant
HEENT: NormoCephalic and Anicteric
Respiratory: Clear and Non Labored Respirations
Cardiac: S1/S2 and Regular Rhythm
GI: Soft and Non Tender
Musculoskeletal: No Edema
Neuro: Awake, Alert, Oriented and Nonfocal/grossly intact
Acute Gastroenteritis 2/2 norovirus
-Stool test positive for norovirus
-tolerating LRD; dc today
Follow fever curve
CT consistent with enteritis
Hypokalemia
improved
Syncope secondary to Hypotension in setting of GI losses
-Monitor blood pressure and orthostatic vital signs
DVT proph: SCDs
Code Status: Full Code
Anticipated Discharge: Today
Subjective/Interval History
-
Date of Service: November 15, 2023
denies pain
Objective Data
-
Labs:
Laboratory Results
11/15/23
07:34
WBC 3.8 L
Hgb 12.8 L
Hct 37.1 L
Plt Count 234 D
Sodium 138
Potassium 3.7
Chloride 103
Carbon Dioxide 28
BUN 14
Creatinine 0.8
Glucose 80
Calcium 8.5
Vital Signs:
Vital Signs
Temp Pulse Resp BP Pulse Ox
98 F 54 14 109/77 99
11/15/23 07:40 11/15/23 07:40 11/15/23 07:40 11/15/23 07:40 11/15/23 07:40
I&O
11/14/23 11/15/23 11/16/23
06:59 06:59 06:59
Intake Total 2200 / 2200 1969
Output Total 600 / 600
Balance 1600 / 1600 1969
--- NOTE | 2023-11-15 11:22 | W.DCSUMMARY ---
Discharge Summary
Discharge Data
Date of Admission: 11/14/23
Date of Discharge: 11/15/23
-
Pending Results: No
Hospital Course
38-year-old male with past medical history of hypothyroidism came to the hospital with syncope secondary to dehydration from vomiting and diarrhea. Patient was initially dehydrated so was started on fluids. Stool studies later came back positive
as norovirus. CT scan was also done which was consistent with enteritis. Initially patient was on liquid diet which was later transitioned to low residue diet which he was able to tolerate prior to the discharge. On admission patient also had
elevated TSH with low free T4. Looking at his previous history he was put on Synthroid at that time. Given his levels he was started on levothyroxine 25 mcg daily. Once his symptoms improved and he was able to tolerate diet, he was then
discharged home with instructions to follow-up with all the physicians outpatient.
Discharge Plan
-
Patient Disposition: Home (Routine Discharge)
Discharge Diagnosis/Procedures: Acute Gastroenteritis secondary to norovirus
Hypothyroidism
Hypokalemia
Diet: As tolerated
Driving Restrictions: As prior to admission
Bathing Restrictions: None
Blood Work: Repeat TSH with reflex T4 in 4 weeks with your primary care provider
Referrals:
NONE,* [Family Provider] - in less than 1 week
Prescriptions:
New
levothyroxine 25 mcg Tablet
25 mcg PO DAILY AT 0700 Qty: 30 0RF
Discharge Orders:
Discharge Patient (As Directed); Ordered 11/15/23
Ordered By: Zachariah Camarena
Discharge Date and Time
Discharge Date/Time: 11/15/23 17:46
--- NOTE | 2023-11-15 12:45 | CM ---
Patient for d/c home, no needs.
Patient plans on taking the bus.
== END 2023-11-15 17:46 | disposition home or self-care (01) | DRG 392 ==
LOC: 4 WEST ACU 08:20
PROVIDERS: Emergency Medicine; Physician Assistant Medical; ADMITTING PHYSICIAN Hospitalist; ATTENDING PHYSICIAN Internal Medicine; EMERGENCY PHYSICIAN Emergency Medicine
DX: A08.11 Acute gastroenteropathy due to Norwalk agent (principal); E03.9 Hypothyroidism, unspecified; E86.0 Dehydration; E87.6 Hypokalemia; R55 Syncope and collapse
CPT/HCPCS: 71046; 74177; 80048; 80053; 81003; 83605; 84439; 84443; 85025; 85027; 87040; 87045; 87046; 87324; 87328; 87329; 87427; 87449; 87502; 87798; 87811; 89055; 93005; 96360; 96361; 99285; Q9967

== ENCOUNTER 2023-11-16 00:01 | Emergency (ER) | payer OTHER, SELFPAY ==
[2023-11-16 00:07] VITALS: BP 108/80
--- NOTE | 2023-11-16 01:42 | ED.GENMED ---
History of Present Illness
General
Chief Complaint: Weakness
Source: patient
Exam Limitations: none
Time Seen by Provider: 11/16/23 01:31
Travel History
Have you had any contact with someone who has COVID-19?: No
Do you have any symptoms of coronavirus? Fever > 100 degrees, chills, cough, shortness of breath, sore throat, loss of taste or smell, muscle aches, or headache?: No
History of Present Illness
History of Present Illness:
This is a 38 year old male that was just discharged from the hospital on 11/15/23. Patient has a psychiatric history and states that his symptoms started up again. State that he just felt that he was in a fog and was dizzy. Patient states that he has
not eaten since he left. Denies any fever, chest pain, SOB, vomiting, diarrhea, headache, dizziness, urinary burning.
Past History
Past History
ED Past Medical History: Hypothyroidism, Psychiatric (Anxiety, Depression. PTSD and schizophrenia) and Other (Chronic back pain, L4-S1 nerve damage, DDD, Noro Virus, Hydrocele)
ED Past Surgical History: None
Social History
Tobacco: Former smoker
Alcohol: None
Drug: Marijuana (Medical marijuana)
Personal: Single
Living: homeless
Employment: Not employed
Family History
Family History: Other (Noncontributory)
Review of Systems
Review of Systems
All Other Systems: ROS reviewed and negative except as documented in HPI and ROS
Constitutional: Reports no symptoms; Denies fever or chills
EENT: Reports no symptoms
Respiratory: Denies cough or trouble breathing
Cardiac: Reports no symptoms; Denies chest pain
ABD/GI: Reports nausea; Denies abdominal pain, vomiting or diarrhea
: Reports no symptoms
Musculoskeletal: Reports no symptoms
Neurological: Reports dizzy and other (Feels like he is in a fog); Denies headache
Psychiatric: Reports no symptoms
Phy Exam
General Physical Exam
General Presentation: well appearing and no apparent distress
General age: appears stated age
General Skin: warm and dry
General Habitus: normal
General Mental: alert
General Hydration: appears well hydrated
ENT Exam
ENT Exam: TM's normal, pharynx normal and neck supple
Eye Exam
Eye Exam: EOMI
Cardiovascular Exam
Cardiovascular Exam: regular rate/rhythm, no edema, no murmur and normal peripheral pulses
Pulmonary Exam
Pulmonary Exam: lungs clear, no respiratory distress, no rales, chest non tender, no crackles, no rhonchi, no wheezing and no cough
Gastrointestinal Exam
Gastrointestinal Exam: normal bowel sounds, non tender, soft, no organomegaly, no pulsatile mass and non distended
Musculoskeletal Exam
Musculoskeletal Exam: full ROM and no edema
Skin Exam
Skin Exam: normal color, warm/dry, no rash and no petechia
Psychiatric Exam
Psychiatric Exam: normal mood/affect
Course
Vital Signs
Initial and Last Documented VS:
Initial Vital Signs
Temp Pulse Resp BP Pulse Ox
98.1 F 64 18 108/80 97
11/16/23 00:07 11/16/23 00:07 11/16/23 00:07 11/16/23 00:07 11/16/23 00:07
Last Documented Vital Signs
Temp Pulse Resp BP Pulse Ox
98.1 F 62 14 109/80 98
11/16/23 00:07 11/16/23 01:57 11/16/23 01:57 11/16/23 01:57 11/16/23 01:57
Shift Engineer consulted with Physician
Shift Engineer consulted with physician?: Yes
Name of Physician Consulted: Dr. Burnham
MDM/Problems Addressed
Differential Diagnosis Includes:
Homeless
MDM/Problems Addressed:
This is a 38 year old male that is homeless that was just discharged from the hospital on 11/15/23. Patient states that he feels he is in a fog and has not eaten since he left. States that he is nauseated and dizzy.
Will feed patient and given fluids. Explained to patient that he was diagnosed with Enteritis and this will take time to get better. Patient needs to eat and drink fluid. Will not readmit patient.
Chronic conditions affecting care: Psychiatric illness
Acute Exacerbation and/or Progression of Chronic Illness: Psychiatric illness
*Pulse Oximetry
Patient hypoxic: no
*EKG
Interpreted by ED Provider?: NA
Rate: EKG- N/A
*Group Home Paraprofessional Interpretation
Rate: Group Home Paraprofessional- N/A
*Critical Care Note
Total Time (30-74mins, 75-104mins- exclusive of procedures): Not Applicable
ED Attending Note
-
Portions of this chart may have been created with voice recognition software.� Occasional wrong word or��sound alike� substitutions may have occurred due to the inherent limitations of voice recognition software.
Discharge Plan
Departure
Patient Disposition: Home (Routine Discharge)
Date of Disposition: 11/16/23
Time of Disposition: 01:56
Patient with high blood pressure during this ER visit?: No
Condition: Good
Covid-19: Not Applicable
Discharge Problem:
Enteritis
Prescriptions:
No Action
levothyroxine 25 mcg Tablet
25 mcg PO DAILY AT 0700 Qty: 30 0RF
Activity Restrictions/Additional Instructions:
As discussed, you need to increase your water intake to 8-8oz glasses daily. You need to follow the instruction you were given when you were discharged. Follow up with the family doctor. Take your medication as directed. Return with any other
concerns.
Interventions
Interventions:
*Risk Screen - Suicide Last Done: 11/16/23 00:07
*General Assessment Last Done: 11/16/23 01:57
*Neglect/Abuse Screening Last Done: 11/16/23 00:07
*ED COVID-19 Vaccine History Last Done: 11/16/23 01:57
*Nursing Disposition Last Done: 11/16/23 02:12
ED- Neurological Assessment Last Done: 11/16/23 01:58
ED- Pulmonary Assessment Last Done: 11/16/23 01:58
Discharge Date and Time
Discharge Date/Time: 11/16/23 02:12
[2023-11-16 01:57] VITALS: BP 109/80
== END 2023-11-16 02:12 | disposition home or self-care (01) ==
LOC: EMR 00:01
PROVIDERS: EMERGENCY PHYSICIAN Emergency Medicine
DX: K52.9 Noninfective gastroenteritis and colitis, unspecified (principal); Z59.00 Homelessness unspecified; Z87.891 Personal history of nicotine dependence
CPT/HCPCS: 99281

== ENCOUNTER 2023-11-16 17:47 | Emergency (ER) | payer OTHER, SELFPAY ==
[2023-11-16 17:54] VITALS: BP 112/78
[2023-11-16 18:14] LABS: % Basophils 0.2 % (0-2); % Immature Granulocytes 0.5 % (0-0.5); % Lymphocytes 32.7 % (20.5-51.1); % Monocytes 8.1 % (1.7-9.3); % Neutrophils 57.5 % (42.2-75.2); Absolute Eosinophils 0.1 10^3/uL (0-0.7); Absolute Lymphocytes 1.9 10^3/uL (1.2-3.4); Absolute Monocytes 0.5 10^3/uL (0.1-0.6); Absolute Neutrophils 3.4 10^3/uL (1.4-6.5); Hematocrit 38.3 % (39.0-52.0); Hemoglobin 13.9 g/dL (13.0-18.0); Mean Corp Hgb Conc. 36.3 g/dL (33.0-37.0); Mean Corpuscular Hgb 28.1 pg (27.0-31.0); Mean Corpuscular Volume 77.4 fL (80.0-94.0); Mean Platelet Volume 9.5 fL (7.4-10.4); Nucleated Red Blood Cells % 0 % (-); Platelet Count 296 10^3/uL (130-400); Red Blood Cell Count 4.95 10^6/uL (4.70-6.10); Red Cell Dist. Width 12.8 % (11.5-14.5); White Blood Cell Count 5.9 10^3/uL (4.8-10.8)
[2023-11-16 18:26] LABS: ALT (SGPT) 20 U/L (0-50); AST (SGOT) 26 U/L (17-59); Albumin 4.8 g/dl (3.5-5.0); Alkaline Phosphatase 57 U/L (38-126); Blood Urea Nitrogen 17 mg/dl (9-20); Calcium 9.5 mg/dl (8.4-10.2); Carbon Dioxide 28 mmol/L (22-30); Chloride 102 mmol/L (98-107); Glucose 85 mg/dl (70-99); Potassium 4.1 mmol/L (3.5-5.1); Sodium 137 mmol/L (135-145); Total Bilirubin 0.9 mg/dl (0.2-1.3); Total Protein 7.4 g/dl (6.3-8.2); eGFR > 60.00
[2023-11-16 19:55] VITALS: BMI 22.3
--- NOTE | 2023-11-16 20:27 | ED.GENMED ---
History of Present Illness
General
Chief Complaint: Dizziness
Source: patient and previous hospital records
Exam Limitations: none
Time Seen by Provider: 11/16/23 19:56
Nursing documentation reviewed up to this point in time: agreed with
Travel History
Have you had any contact with someone who has COVID-19?: No
Do you have any symptoms of coronavirus? Fever > 100 degrees, chills, cough, shortness of breath, sore throat, loss of taste or smell, muscle aches, or headache?: No
History of Present Illness
History of Present Illness:
38-year-old male with history of anxiety/depression, PTSD, schizophrenia Presents stating 'I still have this fogginess in my head,' he states it felt much better after receiving IV fluids last 2 times he was here which happens to be 11/11 when he was
admitted for symptoms he is describing now (lightheadedness, afraid he will faint). Ruminating over all of his issues, past hydrocele, feeling foggy in head, questioning about the lump on his forehead he's had for years since being hit there, how he
may need potassium...etc. and wondering why 'they can't find anything.'
He was also here last night for similar symptoms and discharged with no significant findings.
Past History
Past History
ED Past Medical History: Hypothyroidism, Psychiatric (Anxiety, Depression. PTSD and schizophrenia) and Other (Chronic back pain, L4-S1 nerve damage, DDD, Noro Virus, Hydrocele)
ED Past Surgical History: None
Social History
Tobacco: Former smoker
Alcohol: None
Drug: Marijuana (Medical marijuana)
Personal: Single
Living: homeless
Employment: Not employed
Family History
Family History: Other (Noncontributory)
Review of Systems
Review of Systems
Allergies reviewed?: Yes
All Other Systems: ROS reviewed and negative except as documented in HPI and ROS
Constitutional: Denies fever or fatigue
EENT: Denies sore throat
Respiratory: Denies trouble breathing
Cardiac: Denies chest pain
ABD/GI: Denies abdominal pain, nausea, vomiting or diarrhea
: Denies dysuria or difficulty voiding
Musculoskeletal: Reports no symptoms
Skin: Reports no symptoms
Neurological: Reports other ('foggy' in his head); Denies headache, weakness or numbness
Phy Exam
Physical Exam
Physical Exam:
GENERAL: No acute distress. A&Ox3.
CONSTITUTIONAL: Afebrile.
EYES: PERRL, conjunctivae normal
Neck: Supple
ENMT: moist mucus membranes, Pharynx nl, TMs normal
RESPIRATORY: Regular respirations, nonlabored, lungs clear.
CARDIOVASCULAR: Regular rate and rhythm, no murmurs, no rubs.
GI: Soft, nontender
MUSCULOSKELETAL: Moves with ease. Well perfused.
SKIN: Warm, dry, pink
PSYCH: Normal mood and affect. Well kept, interactive.
NEUROLOGIC: Awake, alert and oriented. No focal neurological deficits
Course
Orders/Labs/Results
Orders:
Orders
11/16/23 18:04
CMP [Comprehensive Metabolic Panel] Urgent
Complete Blood Count/With Diff Urgent
Abnormal Lab Results
11/16/23
18:04
Hct 38.3 L %
(39.0-52.0)
MCV 77.4 L fL
(80.0-94.0)
11/16/23 18:04
11/16/23 18:04
Vital Signs
Initial and Last Documented VS:
Initial Vital Signs
Temp Pulse Resp BP Pulse Ox
98.0 F 74 18 112/78 98
11/16/23 17:54 11/16/23 17:54 11/16/23 17:54 11/16/23 17:54 11/16/23 17:54
Last Documented Vital Signs
Temp Pulse Resp BP Pulse Ox
98.0 F 70 18 112/78 100
11/16/23 17:54 11/16/23 20:51 11/16/23 20:51 11/16/23 17:54 11/16/23 20:51
MDM/Problems Addressed
Differential Diagnosis Includes:
Psychiatric illness
MDM/Problems Addressed:
38-year-old male with history of anxiety/depression, PTSD, schizophrenia Presents stating 'I still have this fogginess in my head,' he states it felt much better after receiving IV fluids last 2 times he was here which happens to be 11/11 when he was
admitted for symptoms he is describing now (lightheadedness, afraid he will faint). Ruminating over all of his issues, past hydrocele, feeling foggy in head, questioning about the lump on his forehead he's had for years since being hit there, how he
may need potassium...etc. and wondering why 'they can't find anything.'
He was also here last night for similar symptoms and discharged with no significant findings.
Last night records review that he is a homeless male with psychiatric illness.
When I informed him that there is nothing more medically that needs to be done here he asks 'do have any food back there?'
Patient is in no acute medical distress
CBC, CMP normal
Reviewed all testing results from two recent visits, no need to repeat or add any further testing.
He will be discharged, he was given a sandwich upon discharge
Chronic conditions affecting care: Psychiatric illness
*Critical Care Note
Total Time (30-74mins, 75-104mins- exclusive of procedures): Not Applicable
ED Attending Note
-
Portions of this chart may have been created with voice recognition software.� Occasional wrong word or��sound alike� substitutions may have occurred due to the inherent limitations of voice recognition software.
Discharge Plan
Departure
Patient Disposition: Home (Routine Discharge)
Date of Disposition: 11/16/23
Time of Disposition: 20:40
Patient with high blood pressure during this ER visit?: No
Condition: Good
Discharge Problem:
Light-headedness
Instructions: Dizziness, Adult ED
Prescriptions:
No Action
levothyroxine 25 mcg Tablet
25 mcg PO DAILY AT 0700 Qty: 30 0RF
Referrals:
[facility] [Other] - Next open appointment
NONE,* [Family Provider] -
Activity Restrictions/Additional Instructions:
Call the clinic to make next available appointment [phone] for any of your medical issues
Interventions
Interventions:
*Risk Screen - Suicide Last Done: 11/16/23 19:55
*General Assessment Last Done: 11/16/23 19:55
*Neglect/Abuse Screening Last Done: 11/16/23 19:55
ED- Fall Risk Assessment Last Done: 11/16/23 19:55
*ED COVID-19 Vaccine History Last Done: 11/16/23 19:55
*Nursing Disposition Last Done: 11/16/23 20:51
ED- Cardiac Assessment Last Done: 11/16/23 20:51
ED- Neurological Assessment Last Done: 11/16/23 19:55
ED- Pulmonary Assessment Last Done: 11/16/23 19:55
ED Swallowing Screen Last Done: 11/16/23 20:51
Discharge Date and Time
Discharge Date/Time: 11/16/23 20:52
== END 2023-11-16 20:52 | disposition home or self-care (01) ==
LOC: EMR 17:47
PROVIDERS: Emergency Medicine; EMERGENCY PHYSICIAN Emergency Medicine
DX: R42 Dizziness and giddiness (principal); R22.0 Localized swelling, mass and lump, head; F20.9 Schizophrenia, unspecified; F41.8 Other specified anxiety disorders; F32.A Depression, unspecified; F43.10 Post-traumatic stress disorder, unspecified; Z87.891 Personal history of nicotine dependence; Z59.00 Homelessness unspecified
CPT/HCPCS: 99283; 80053; 85025

== ENCOUNTER 2023-11-26 20:44 | Emergency (ER) | payer OTHER, SELFPAY ==
[2023-11-26 20:49] VITALS: BP 122/75
--- NOTE | 2023-11-26 22:12 | ED.GENMED ---
History of Present Illness
General
Chief Complaint: Visual Problem
Source: patient
Time Seen by Provider: 11/26/23 22:13
Travel History
Have you had any contact with someone who has COVID-19?: No
Do you have any symptoms of coronavirus? Fever > 100 degrees, chills, cough, shortness of breath, sore throat, loss of taste or smell, muscle aches, or headache?: No
Past History
Past History
ED Past Medical History: Hypothyroidism, Psychiatric (Anxiety, Depression. PTSD and schizophrenia) and Other (Chronic back pain, L4-S1 nerve damage, DDD, Noro Virus, Hydrocele)
ED Past Surgical History: None
Social History
Tobacco: Former smoker
Alcohol: None
Drug: Marijuana (Medical marijuana)
Personal: Single
Living: homeless
Employment: Not employed
Family History
Family History: Other (Noncontributory)
Review of Systems
Review of Systems
Allergies reviewed?: Yes
All Other Systems: Not applicable
Course
Vital Signs
Initial and Last Documented VS:
Initial Vital Signs
Temp Pulse Resp BP Pulse Ox
98.7 F 88 17 122/75 97
11/26/23 20:49 11/26/23 20:49 11/26/23 20:49 11/26/23 20:49 11/26/23 20:49
Last Documented Vital Signs
Temp Pulse Resp BP Pulse Ox
98.7 F 88 17 122/75 97
11/26/23 20:49 11/26/23 20:49 11/26/23 20:49 11/26/23 20:49 11/26/23 20:49
ED Attending Note
ED Attending Note
Patient seen and examined by attending physician: Yes
I performed the substantive portion of visit, reviewed & personally made and approve the management plan that is documented in note by myself or GINGER.: Yes
-
Portions of this chart may have been created with voice recognition software.� Occasional wrong word or��sound alike� substitutions may have occurred due to the inherent limitations of voice recognition software.
Discharge Plan
Departure
Prescriptions:
No Action
levothyroxine 25 mcg Tablet
25 mcg PO DAILY AT 0700 Qty: 30 0RF
Referrals:
NONE,* [Family Provider] -
Interventions
Interventions:
*Risk Screen - Suicide Last Done: 11/26/23 20:49
*General Assessment Last Done: 11/26/23 20:49
*Neglect/Abuse Screening Last Done: 11/26/23 20:49
*ED COVID-19 Vaccine History Last Done: 11/26/23 20:49
ED- Neurological Assessment Last Done: 11/26/23 21:35
ED-EENT Assessment Last Done: 11/26/23 21:35
ED Swallowing Screen Last Done: 11/26/23 21:35
--- NOTE | 2023-11-26 22:16 | ED.GENMED ---
History of Present Illness
<MARKOS Oleary - Last Filed: 12/03/23 03:43>
General
Chief Complaint: Visual Problem
Source: patient
Time Seen by Provider: 11/26/23 22:13
Travel History
Have you had any contact with someone who has COVID-19?: No
Do you have any symptoms of coronavirus? Fever > 100 degrees, chills, cough, shortness of breath, sore throat, loss of taste or smell, muscle aches, or headache?: No
History of Present Illness
History of Present Illness:
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 Pt states he has spent the last 3 days at
[facility] where he had an EKG and MRI and was discharged today with no diagnosis. Pt notes he also has blurry vision but that is not new. He reports the symptoms started with SOB 3 days ago which prompted him to call 911. He states he then
developed left sided weakness accompanied by pins and needles, speech difficulty, dizziness, and double vision. He reports 'slowed interpretation of words'. He reports experienced similar symptoms on his right side several years ago after 'eating a
[employer] and then going to [facility]'. sandwich He denies any changes in vision, visual pain or discomfort in the dark or in the light, recent head trauma, falls, chest pain, hallucinations. Pt denies alcohol consumption, tobacco use, or
illicit drug use. He recently had norovirus 1 month prior which he was admitted to the hospital for. He states he lives at his mother house with his sister.
Past History
<MARKOS Oleary - Last Filed: 12/03/23 03:43>
Past History
ED Past Medical History: Hypothyroidism, Psychiatric (Anxiety, Depression. PTSD and schizophrenia) and Other (Chronic back pain, L4-S1 nerve damage, DDD, Noro Virus, Hydrocele)
ED Past Surgical History: None
Social History
Tobacco: Former smoker
Alcohol: None
Drug: Marijuana (Medical marijuana)
Personal: Single
Living: homeless
Employment: Not employed
Family History
Family History: Other (Noncontributory)
Phy Exam
<MARKOS Oleary - Last Filed: 12/03/23 03:43>
General Physical Exam
General Presentation: well appearing
General age: appears stated age
General Skin: warm and dry
General Habitus: normal
General Mental: alert
General Hydration: appears well hydrated
Mental
Mental Status: oriented to person, oriented to place, oriented to time and responds to voice
Describe Speech: normal speech
Skin Exam
Skin Exam: normal color
Psychiatric Exam
Psychiatric Exam: other (Tangential speech )
Course
<MARKOS Oleary - Last Filed: 12/03/23 03:43>
Vital Signs
Initial and Last Documented VS:
Initial Vital Signs
Temp Pulse Resp BP Pulse Ox
98.7 F 88 17 122/75 97
11/26/23 20:49 11/26/23 20:49 11/26/23 20:49 11/26/23 20:49 11/26/23 20:49
Last Documented Vital Signs
Temp Pulse Resp BP Pulse Ox
98.7 F 68 16 121/73 97
11/26/23 20:49 11/26/23 23:35 11/26/23 23:35 11/26/23 23:35 11/26/23 20:49
<Josue Zendejas DO - Last Filed: 11/26/23 23:47>
Vital Signs
Initial and Last Documented VS:
Initial Vital Signs
Temp Pulse Resp BP Pulse Ox
98.7 F 88 17 122/75 97
11/26/23 20:49 11/26/23 20:49 11/26/23 20:49 11/26/23 20:49 11/26/23 20:49
Last Documented Vital Signs
Temp Pulse Resp BP Pulse Ox
98.7 F 68 16 121/73 97
11/26/23 20:49 11/26/23 23:35 11/26/23 23:35 11/26/23 23:35 11/26/23 20:49
<MARKOS Oleary - Last Filed: 12/03/23 03:43>
*Critical Care Note
Total Time (30-74mins, 75-104mins- exclusive of procedures): Not Applicable
<Josue Zendejas DO - Last Filed: 11/26/23 23:47>
Update Note
Update Note:
11/26/2023 2347 PM: Patient resting comfortably on bed in no acute distress. Patient being discharged in improved condition. Discussed return to ER instructions with patient. He has no questions at this time.
ED Attending Note
<MARKOS Oleary - Last Filed: 12/03/23 03:43>
-
Portions of this chart may have been created with voice recognition software.� Occasional wrong word or��sound alike� substitutions may have occurred due to the inherent limitations of voice recognition software.
<Josue Zendejas DO - Last Filed: 11/26/23 23:47>
ED Attending Note
Patient seen and examined by attending physician: Yes
I performed the substantive portion of visit, reviewed & personally made and approve the management plan that is documented in note by myself or GINGER.: Yes
ED Attending Note:
38-year-old male who presents emergency department with double vision. He states that it has been going on for weeks. He was recently admitted to [facility] and discharged this morning. During his time he had MRI, CT, and all other testing
done. He states that his symptoms began after eating food. He reports having issues with food for years stating that he had similar issues several years back after eating a sandwich from [employer]. Patient is here because he was discharged from
[place] with 'a clean bill of health' and feels that something might have been messed. Patient denies chest pain or shortness of breath. He denies headache. He reports no nausea or vomiting. He denies illicit drug use. Patient requested that
when he gets discharged that he could stay in the waiting room as he does not want to go back to his house due to 'legal issues '. Patient denies any suicidal or homicidal ideation, intent, or plan. I asked him if he wanted to see crisis and he
refused. Patient does have a backpacking backpack full of his possessions. Patient has no other complaints at this time. Patient was seen in conjunction with the PA student. I have reviewed and agree with the history and treatment plan
presented. On my independent physical exam, patient is awake, alert, and oriented x3, and seemingly no acute distress. He is disheveled in appearance wearing lightly soiled clothing. Patient states that he has eaten. Heart is regular rate and
rhythm. Lungs are clear to auscultation bilaterally without wheezes rales or rhonchi present. Moves all 4 extremities. Skin is warm and dry. Plan is discharge.
Discharge Plan
Departure
Patient Disposition: Home (Routine Discharge)
Date of Disposition: 11/26/23
Time of Disposition: 23:45
Patient with high blood pressure during this ER visit?: Yes
Condition: Good
Discharge Problem:
Subacute double vision
Instructions: Double Vision (DC), BLOOD PRESSURE
Prescriptions:
No Action
levothyroxine 25 mcg Tablet
25 mcg PO DAILY AT 0700 Qty: 30 0RF
Referrals:
Andrei Goodwin MD [Active] -
NONE,* [Family Provider] -
Activity Restrictions/Additional Instructions:
It was a pleasure meeting you and taking part in your care. We hope for your continued healing and wellness.
Please read discharge instructions in their entirety. However, they are for general education and may not describe your exact diagnosis at discharge. Information on your ER visit and medical conditions were discussed with you along with appropriate
follow up information...
If indicated, please take your medications as instructed and indicated on discharge paperwork.
Please schedule a follow up appointment as directed. Call to schedule an appointment
Please return to the emergency department with ANY change in, persisting, or worsening of symptoms. If any of your symptoms do not improve, or persist, or become more severe within 6-12 hours, please return to the emergency department for further
care.
Please return to the emergency department if you develop a headache, neck pain/stiffness, fever greater than 100.4F, chest pain, shortness of breath, persistent nausea, vomiting, slurred speech, difficulty walking, numbness/tingling, weakness, signs
of infection or any other symptoms that are worrisome to you.
If you have any questions or concerns please do not hesitate to call the Hospital at
Interventions
Interventions:
*Risk Screen - Suicide Last Done: 11/26/23 20:49
*General Assessment Last Done: 11/26/23 20:49
*Neglect/Abuse Screening Last Done: 11/26/23 20:49
*ED COVID-19 Vaccine History Last Done: 11/26/23 20:49
*Nursing Disposition Last Done: 11/26/23 23:35
ED- Neurological Assessment Last Done: 11/26/23 21:35
ED-EENT Assessment Last Done: 11/26/23 21:35
ED Swallowing Screen Last Done: 11/26/23 21:35
Discharge Date and Time
Discharge Date/Time: 11/27/23 00:02
[2023-11-26 23:33] VITALS: BP 121/73
[2023-11-26 23:35] VITALS: BP 121/73
== END 2023-11-27 00:02 | disposition home or self-care (01) ==
LOC: EMR 20:44
PROVIDERS: EMERGENCY PHYSICIAN Student in an Organized Health Care Education/Training Program
DX: H53.2 Diplopia (principal); R03.0 Elevated blood-pressure reading, without diagnosis of hypertension; Z87.891 Personal history of nicotine dependence; Z59.00 Homelessness unspecified
CPT/HCPCS: 99281

== ENCOUNTER 2023-12-09 22:02 | Emergency (ER) | payer OTHER, SELFPAY ==
--- NOTE | 2023-12-09 23:37 | ED.GENMED ---
History of Present Illness
General
Chief Complaint: Weakness
Source: patient
Exam Limitations: none
Time Seen by Provider: 12/09/23 22:56
Travel History
Have you had any contact with someone who has COVID-19?: No
Do you have any symptoms of coronavirus? Fever > 100 degrees, chills, cough, shortness of breath, sore throat, loss of taste or smell, muscle aches, or headache?: No
History of Present Illness
History of Present Illness:
This is a 38 year old male that comes in with c/o chest pain. patient states that he was at [place] 2 days ago and they gave him a water bottle and he filled it up with water at the park sink. Denies any fever, chills, SOB, abd pain, nausea,
vomiting, diarrhea, headache, dizziness, urinary burning.
Past History
Past History
ED Past Medical History: Hypothyroidism, Psychiatric (Anxiety, Depression. PTSD and schizophrenia) and Other (Chronic back pain, L4-S1 nerve damage, DDD, Noro Virus, Hydrocele)
ED Past Surgical History: None
Social History
Tobacco: Former smoker
Alcohol: None
Drug: Marijuana (Medical marijuana)
Personal: Single
Living: homeless
Employment: Not employed
Family History
Family History: Other (Noncontributory)
Review of Systems
Review of Systems
All Other Systems: ROS reviewed and negative except as documented in HPI and ROS
Constitutional: Reports no symptoms; Denies fever or chills
EENT: Reports no symptoms
Respiratory: Reports no symptoms; Denies cough or trouble breathing
Cardiac: Reports chest pain
ABD/GI: Reports no symptoms; Denies abdominal pain, nausea, vomiting or diarrhea
: Reports no symptoms; Denies dysuria, frequency or urgency
Musculoskeletal: Reports no symptoms
Skin: Reports no symptoms
Neurological: Reports no symptoms; Denies dizzy or headache
Psychiatric: Reports no symptoms
Phy Exam
General Physical Exam
General Presentation: no apparent distress
General age: appears stated age
General Skin: warm and dry
General Habitus: poor hygiene (States no shower in 3 days)
General Mental: alert
General Hydration: appears well hydrated
ENT Exam
ENT Exam: TM's normal, pharynx normal and neck supple
Eye Exam
Eye Exam: EOMI
Cardiovascular Exam
Cardiovascular Exam: regular rate/rhythm, no edema, no murmur and normal peripheral pulses
Pulmonary Exam
Pulmonary Exam: lungs clear, no respiratory distress, no rales, chest non tender, no crackles, no rhonchi, no wheezing and no cough
Gastrointestinal Exam
Gastrointestinal Exam: normal bowel sounds, non tender, soft, no organomegaly, no pulsatile mass and non distended
Musculoskeletal Exam
Musculoskeletal Exam: full ROM and no edema
Skin Exam
Skin Exam: normal color, warm/dry, no rash and no petechia
Psychiatric Exam
Psychiatric Exam: normal mood/affect
Course
Orders/Labs/Results
Orders:
Orders
12/09/23 22:08
Electrocardiogram (*1) Urgent
Reason for Study: Chest Pain
EKG- Treatment ONCE
12/09/23 23:37
Troponin I Urgent
Troponin <0.012
Vital Signs
Initial and Last Documented VS:
Initial Vital Signs
Temp Pulse Ox
98.6 F 99
12/09/23 22:04 12/09/23 22:04
Last Documented Vital Signs
Temp Pulse Resp BP Pulse Ox
98.6 F 55 18 114/70 98
12/09/23 22:04 12/10/23 00:40 12/10/23 00:40 12/10/23 00:40 12/10/23 00:40
MDM/Problems Addressed
Differential Diagnosis Includes:
Homeless, Musculoskeletal chest pain
MDM/Problems Addressed:
This is a 38 year old male that is homeless. States that he has left sided chest pain.
Will check Troponin and feed patient. Patient has been seen in the ER frequently.
back into see patient. Explained that his troponin and ECG are normal. Patient has been given a lunch box. Will discharge patient.
Chronic conditions affecting care: Psychiatric illness
Acute Exacerbation and/or Progression of Chronic Illness: Psychiatric illness
*Pulse Oximetry
Patient hypoxic: no
*EKG
Interpreted by ED Provider?: Yes
Heart Rate: 50
Rate: bradycardiac
Rhythm: sinus (Bradycardia)
[place]: normal axis
Interval: normal interval
QRS Pattern: normal QRS
Ischemia: no ischemia
*Lang Path Therapist Interpretation
Rate: Lang Path Therapist- N/A
*Critical Care Note
Total Time (30-74mins, 75-104mins- exclusive of procedures): Not Applicable
ED Attending Note
-
Portions of this chart may have been created with voice recognition software.� Occasional wrong word or��sound alike� substitutions may have occurred due to the inherent limitations of voice recognition software.
Discharge Plan
Departure
Patient Disposition: Home (Routine Discharge)
Date of Disposition: 12/10/23
Time of Disposition: 00:43
Patient with high blood pressure during this ER visit?: No
Condition: Good
Covid-19: Not Applicable
Discharge Problem:
Chest pain
Instructions: Chest Pain (DC)
Prescriptions:
No Action
levothyroxine 25 mcg Tablet
25 mcg PO DAILY AT 0700 Qty: 30 0RF
Referrals:
UNKNOWN - PT DOES,NOT KNOW [Family Provider] -
Activity Restrictions/Additional Instructions:
As discussed, your blood work is normal along with the ECG. Please follow up with the family doctor.
Interventions
Interventions:
*Risk Screen - Suicide Last Done: 12/09/23 22:04
*General Assessment Last Done: 12/09/23 22:04
*Neglect/Abuse Screening Last Done: 12/09/23 22:04
ED- Fall Risk Assessment Last Done: 12/09/23 23:13
*ED COVID-19 Vaccine History Last Done: 12/09/23 22:04
ED- Cardiac Assessment Last Done: 12/09/23 23:13
ED- Neurological Assessment Last Done: 12/09/23 23:13
ED- Pulmonary Assessment Last Done: 12/09/23 23:13
Discharge Date and Time
Print Language: LITHUANIAN
[2023-12-10 00:38] LABS: Troponin I < 0.012 ng/ml
[2023-12-10 00:40] VITALS: BP 114/70
== END 2023-12-10 00:54 | disposition home or self-care (01) ==
LOC: EMR 22:02
PROVIDERS: Clinical Nurse Specialist Family Health; EMERGENCY PHYSICIAN Emergency Medicine
DX: R07.89 Other chest pain (principal); Z59.00 Homelessness unspecified; Z87.891 Personal history of nicotine dependence
CPT/HCPCS: 99284; 84484; 93005

== ENCOUNTER 2023-12-10 18:50 | Emergency (ER) | payer OTHER, SELFPAY ==
[2023-12-10 18:50] VITALS: BMI 22.8
[2023-12-10 18:55] VITALS: BP 113/74
--- NOTE | 2023-12-10 19:41 | ED.GENMED ---
History of Present Illness
General
Chief Complaint: Dizziness
Time Seen by Provider: 12/10/23 19:41
Travel History
Have you had any contact with someone who has COVID-19?: No
Do you have any symptoms of coronavirus? Fever > 100 degrees, chills, cough, shortness of breath, sore throat, loss of taste or smell, muscle aches, or headache?: No
History of Present Illness
History of Present Illness:
HPI: The patient presents due to dizziness/sensation of ataxia. He also reports some vague paresthesias. He has had similar episodes in the past and states that he had normal neuroimaging and unremarkable EEG testing while at [facility] about a
month ago.
EXAM:
GENERAL: The patient appears somewhat unkempt
HEENT: Moist oral mucosa
CARDIOVASCULAR: No murmurs, normal heart rate, regular rhythm, No chest wall tenderness
PULMONARY: No respiratory distress, breath sounds are clear and equal
ABDOMEN: Soft with no peritoneal signs, no tenderness
NEUROLOGIC: Excellent strength all extremities, no coordination deficits, I walked his gait and this was normal, there is no ataxia, no sensory deficit
PSYCHIATRIC: Appropriate mental status, normal insight and judgement
EXTREMITIES: Nontender, no edema, moves all extremities equally
SKIN: No rash, no lesions
TIME OF INITIAL ENCOUNTER: 7:45 PM
NUMBER AND COMPLEXITY OF PROBLEMS ADDRESSED AT THE ENCOUNTER
� Chronic conditions affecting care: PTSD, anxiety/depression, schizophrenia
� Acute Exacerbation and/or Progression of Chronic Illness: This is an acute but recurrent problem
� Differential Diagnosis includes: Exacerbation of mental illness, nonspecific paresthesias, nonspecific dizzy
AMOUNT AND/OR COMPLEXITY OF DATA TO BE REVIEWED AND ANALYZED
� I performed an independent evaluation of and my interpretation is:
EKG:
CT: CT brain negative
X-rays:
Laboratory Studies: Troponin early this morning was negative
Other:
� Review of other/old records: I reviewed recent notes�he has had 4 other ED visits�chest pain on 12/09/2023, diplopia on 11/26/2023, lightheadedness on 11/16/2023, and enteritis on 11/16/2023. The patient was admitted here less than
1 month ago with dehydration related to vomiting and diarrhea and was positive for norovirus at the time. Thyroid testing was abnormal at that time as well.
� Clinical information was obtained by an independent historian: None needed
� Prescriptions/Medications Considered but not given:
� Further testing considered but not performed:
RISK OF COMPLICATIONS AND/OR MORBIDITY OR MORTALITY OF PATIENT MANAGEMENT
� Social determinants of health affecting care: The patient is homeless
� Discussion with other providers:
� Escalation of care including admission/observation vs risk of discharge considered: The patient states he has been having worsening symptoms therefore CT imaging is obtained. He has had no neuroimaging at [facility] to review.
CT imaging unremarkable. I reassessed patient at 10:10 PM and he is resting comfortably.
Past History
Past History
ED Past Medical History: Hypothyroidism, Psychiatric (Anxiety, Depression. PTSD and schizophrenia) and Other (Chronic back pain, L4-S1 nerve damage, DDD, Noro Virus, Hydrocele)
ED Past Surgical History: None
Social History
Tobacco: Former smoker
Alcohol: None
Drug: Marijuana (Medical marijuana)
Personal: Single
Living: homeless
Employment: Not employed
Family History
Family History: Other (Noncontributory)
Phy Exam
Physical Exam
Physical Exam:
See HPI
Course
Orders/Labs/Results
Orders:
Orders
12/10/23 19:52
CT Head W/o Iv Contrast Urgent
Comment:
Reason For Exam: worsening dizziness and paresthesias
Vital Signs
Initial and Last Documented VS:
Initial Vital Signs
Temp Pulse Resp BP Pulse Ox
98.7 F 78 18 113/74 99
12/10/23 18:55 12/10/23 18:55 12/10/23 18:55 12/10/23 18:55 12/10/23 18:55
Last Documented Vital Signs
Temp Pulse Resp BP Pulse Ox
98.7 F 78 18 113/74 99
12/10/23 18:55 12/10/23 18:55 12/10/23 18:55 12/10/23 18:55 12/10/23 18:55
*Critical Care Note
Total Time (30-74mins, 75-104mins- exclusive of procedures): Not Applicable
ED Attending Note
-
Portions of this chart may have been created with voice recognition software.� Occasional wrong word or��sound alike� substitutions may have occurred due to the inherent limitations of voice recognition software.
Discharge Plan
Departure
Patient Disposition: Home (Routine Discharge)
Date of Disposition: 12/10/23
Time of Disposition: 22:14
Patient with high blood pressure during this ER visit?: No
Discharge Problem:
Vertigo
Instructions: Vertigo (a Type of Dizziness) (DC)
Prescriptions:
No Action
levothyroxine 25 mcg Tablet
25 mcg PO DAILY AT 0700 Qty: 30 0RF
Referrals:
NONE,* [Family Provider] -
Gin[facility], [Active] - Follow up in 2-3 days
Activity Restrictions/Additional Instructions:
The cause of your symptoms is unclear. Fortunately CAT scan of the brain is normal. Your vital signs are also normal. I have given you the contact information for local neurologist.
Interventions
Interventions:
*Risk Screen - Suicide Last Done: 12/10/23 18:55
*General Assessment Last Done: 12/10/23 18:55
*Neglect/Abuse Screening Last Done: 12/10/23 18:55
ED- Fall Risk Assessment Last Done: 12/10/23 19:51
*ED COVID-19 Vaccine History Last Done: 12/10/23 19:50
ED- Neurological Assessment Last Done: 12/10/23 19:51
ED Swallowing Screen Last Done: 12/10/23 19:51
Discharge Date and Time
Print Language: FAROESE
== END 2023-12-10 22:37 | disposition home or self-care (01) ==
LOC: EMR 18:50
PROVIDERS: EMERGENCY PHYSICIAN Emergency Medicine
DX: R42 Dizziness and giddiness (principal); R20.2 Paresthesia of skin; Z87.891 Personal history of nicotine dependence; Z59.00 Homelessness unspecified
CPT/HCPCS: 99284; 70450

== ENCOUNTER 2023-12-24 19:01 | Emergency (ER) | payer OTHER, SELFPAY ==
[2023-12-24 19:20] VITALS: BP 122/80
[2023-12-24 19:35] LABS: % Basophils 0.3 % (0-2); % Eosinophils 0.3 % (0-6); % Immature Granulocytes 0.3 % (0-0.5); % Lymphocytes 22.7 % (20.5-51.1); % Monocytes 6.1 % (1.7-9.3); % Neutrophils 70.3 % (42.2-75.2); Absolute Lymphocytes 1.5 10^3/uL (1.2-3.4); Absolute Monocytes 0.4 10^3/uL (0.1-0.6); Absolute Neutrophils 4.6 10^3/uL (1.4-6.5); Hematocrit 41.1 % (39.0-52.0); Mean Corp Hgb Conc. 34.1 g/dL (33.0-37.0); Mean Corpuscular Hgb 28.4 pg (27.0-31.0); Mean Corpuscular Volume 83.4 fL (80.0-94.0); Mean Platelet Volume 9.5 fL (7.4-10.4); Nucleated Red Blood Cells % 0 % (-); Platelet Count 273 10^3/uL (130-400); Red Blood Cell Count 4.93 10^6/uL (4.70-6.10); Red Cell Dist. Width 12.9 % (11.5-14.5); White Blood Cell Count 6.6 10^3/uL (4.8-10.8)
[2023-12-24 19:48] LABS: ALT (SGPT) 12 U/L (0-50); AST (SGOT) 28 U/L (17-59); Albumin 4.9 g/dl (3.5-5.0); Alkaline Phosphatase 59 U/L (38-126); Blood Urea Nitrogen 15 mg/dl (9-20); Calcium 9.7 mg/dl (8.4-10.2); Carbon Dioxide 28 mmol/L (22-30); Chloride 104 mmol/L (98-107); Glucose 89 mg/dl (70-99); Potassium 4.3 mmol/L (3.5-5.1); Sodium 138 mmol/L (135-145); Total Bilirubin 0.8 mg/dl (0.2-1.3); Total Protein 7.5 g/dl (6.3-8.2); eGFR > 60.00
--- NOTE | 2023-12-24 23:21 | ED.GENMED ---
History of Present Illness
General
Chief Complaint: Dizziness
Source: patient
Exam Limitations: none
Time Seen by Provider: 12/24/23 23:08
Nursing documentation reviewed up to this point in time: agreed with
Travel History
Have you had any contact with someone who has COVID-19?: No
Do you have any symptoms of coronavirus? Fever > 100 degrees, chills, cough, shortness of breath, sore throat, loss of taste or smell, muscle aches, or headache?: No
History of Present Illness
History of Present Illness:
This a pleasant 38-year-old male that presents with dizziness. He states that he has been to several hospitals for this dizziness, most recently [facility] yesterday. Patient has had normal CT scans recently. He reports that in the recent
months he had a neurology consult and had normal EEG testing. Patient denies fever, chills, nausea or vomiting. Reports no chest pain or shortness of breath.
Vital signs are stable. Patient not hypoxic
Nursing note reviewed. I agree with nursing documentation up to this point in time.
Home Meds and allergies reviewed.
NUMBER AND COMPLEXITY OF PROBLEMS ADDRESSED AT THE ENCOUNTER
� Chronic conditions affecting care: Anxiety, PTSD, schizophrenia, depression, frequent dizziness
� Acute Exacerbation and/or Progression of Chronic Illness: This is an acute on chronic problem
� Differential Diagnosis includes: Dizziness, exacerbation of anxiety/schizophrenia
AMOUNT AND/OR COMPLEXITY OF DATA TO BE REVIEWED AND ANALYZED
I performed an independent evaluation of the following and my interpretation is:
EKG:
CT: Previous CT reviewed.
X-rays:
Ultrasound:
Laboratory Studies:
Other:
Review of other/old records:
Clinical information was obtained by an independent historian:
Prescriptions/Medications Considered but not given:
Further testing considered but not performed:
RISK OF COMPLICATIONS AND/OR MORBIDITY OR MORTALITY OF PATIENT MANAGEMENT
Social determinants of health affecting care: Patient is homeless at this time. He also has been engaging in multiple ER visits at different hospitals.
Discussion with other providers:
Escalation of care including admission/observation vs risk of discharge considered:
CRITICAL CARE NOTE: Not applicable
Total Time (exclusive of procedures):
Update:
Past History
Past History
ED Past Medical History: Hypothyroidism, Psychiatric (Anxiety, Depression. PTSD and schizophrenia) and Other (Chronic back pain, L4-S1 nerve damage, DDD, Noro Virus, Hydrocele)
ED Past Surgical History: None
Social History
Tobacco: Former smoker
Alcohol: None
Drug: Marijuana (Medical marijuana)
Personal: Single
Living: homeless
Employment: Not employed
Family History
Family History: Other (Noncontributory)
Review of Systems
Review of Systems
Allergies reviewed?: Yes
All Other Systems: ROS reviewed and negative except as documented in HPI and ROS
Constitutional: Reports no symptoms
EENT: Reports no symptoms
Respiratory: Reports no symptoms
Cardiac: Reports no symptoms
ABD/GI: Reports no symptoms
: Reports no symptoms
Musculoskeletal: Reports no symptoms
Skin: Reports no symptoms
Neurological: Reports dizzy; Denies headache, weakness or numbness
Endocrine: Reports no symptoms
Hematologic/Lymphatic: Reports no symptoms
Psychiatric: Reports anxiety
Phy Exam
General Physical Exam
General Presentation: well appearing and no apparent distress
General Skin: warm and dry
General Habitus: normal
General Mental: alert
General Hydration: appears well hydrated
ENT Exam
ENT Exam: EOMI, pharynx normal, neck supple and normocephalic
Eye Exam
Eye Exam: PERRL, cornea clear and conjunctiva normal
Cardiovascular Exam
Cardiovascular Exam: regular rate/rhythm, no edema, no murmur and normal peripheral pulses
Pulmonary Exam
Pulmonary Exam: lungs clear, no respiratory distress, no rales, no crackles, no rhonchi, no stridor, no wheezing and no cough
Gastrointestinal Exam
Gastrointestinal Exam: normal bowel sounds, non tender, soft, no organomegaly, no pulsatile mass and non distended
Neurological Exam
Neurological Exam: alert, oriented x3, no motor deficits and speech normal
Musculoskeletal Exam
Musculoskeletal Exam: full ROM and no edema
Skin Exam
Skin Exam: normal color, warm/dry, no rash and no petechia
Psychiatric Exam
Psychiatric Exam: normal mood/affect
Course
Orders/Labs/Results
Orders:
Orders
12/24/23 19:27
Complete Blood Count/With Diff Urgent
Comprehensive Metabolic Panel Stat
12/24/23 23:20
0.9% Sodium Chloride 1000 ml [Nss] 1,000 ml IV BOLUS
12/24/23 19:27
12/24/23 19:27
Vital Signs
Initial and Last Documented VS:
Initial Vital Signs
Temp Pulse Resp BP Pulse Ox
98.1 F 87 18 122/80 98
12/24/23 19:20 12/24/23 19:20 12/24/23 19:20 12/24/23 19:20 12/24/23 19:20
Last Documented Vital Signs
Temp Pulse Resp BP Pulse Ox
98.1 F 55 14 121/73 98
12/24/23 19:20 12/25/23 01:16 12/25/23 01:16 12/25/23 01:16 12/25/23 01:16
*Critical Care Note
Total Time (30-74mins, 75-104mins- exclusive of procedures): Not Applicable
Patient Management
Social determinants of health affecting care: Poor outpatient follow-up
ED Attending Note
-
Portions of this chart may have been created with voice recognition software.� Occasional wrong word or��sound alike� substitutions may have occurred due to the inherent limitations of voice recognition software.
Discharge Plan
Departure
Patient Disposition: Home (Routine Discharge)
Date of Disposition: 12/25/23
Time of Disposition: 01:50
Patient with high blood pressure during this ER visit?: Yes
Condition: Good
Discharge Problem:
Dizziness
Instructions: Dizziness, Nonvertigo, (DC)
Prescriptions:
No Action
levothyroxine 25 mcg Tablet
25 mcg PO DAILY AT 0700 Qty: 30 0RF
Referrals:
[facility] [Outside]
[facility] [Outside]
UNKNOWN - PT DOES,NOT KNOW [Family Provider] -
Activity Restrictions/Additional Instructions:
It was a pleasure meeting you and taking part in your care. We hope for your continued healing and wellness.
Please read discharge instructions in their entirety. However, they are for general education and may not describe your exact diagnosis at discharge. Information on your ER visit and medical conditions were discussed with you along with appropriate
follow up information...
If indicated, please take your medications as instructed and indicated on discharge paperwork.
Please schedule a follow up appointment as directed. Call to schedule an appointment
Please return to the emergency department with ANY change in, persisting, or worsening of symptoms. If any of your symptoms do not improve, or persist, or become more severe within 6-12 hours, please return to the emergency department for further
care.
Please return to the emergency department if you develop a headache, neck pain/stiffness, fever greater than 100.4F, chest pain, shortness of breath, persistent nausea, vomiting, slurred speech, difficulty walking, numbness/tingling, weakness, signs
of infection or any other symptoms that are worrisome to you.
If you have any questions or concerns please do not hesitate to call the Hospital at
Interventions
Interventions:
*Risk Screen - Suicide Last Done: 12/25/23 00:03
*General Assessment Last Done: 12/24/23 23:53
ED- Fall Risk Assessment Last Done: 12/25/23 00:03
*ED COVID-19 Vaccine History Last Done: 12/24/23 19:22
ED- Neurological Assessment Last Done: 12/24/23 23:49
ED Swallowing Screen Last Done: 12/24/23 23:52
Discharge Date and Time
Print Language: [place] K[place]
[2023-12-24] MEDS: NSS 1000 IV (23:28)
[2023-12-24 23:52] VITALS: BMI 22.2
[2023-12-25 01:16] VITALS: BP 121/73
[2023-12-25 02:24] VITALS: BP 118/72
== END 2023-12-25 02:31 | disposition home or self-care (01) ==
LOC: EMR 19:01
PROVIDERS: Emergency Medicine; EMERGENCY PHYSICIAN Student in an Organized Health Care Education/Training Program
DX: R42 Dizziness and giddiness (principal); R03.0 Elevated blood-pressure reading, without diagnosis of hypertension; F41.9 Anxiety disorder, unspecified; F43.10 Post-traumatic stress disorder, unspecified; F32.A Depression, unspecified; E03.9 Hypothyroidism, unspecified; F20.9 Schizophrenia, unspecified; Z59.00 Homelessness unspecified; G89.29 Other chronic pain; M54.9 Dorsalgia, unspecified; M51.35 Other intervertebral disc degeneration, thoracolumbar region; Z87.891 Personal history of nicotine dependence; Z91.048 Other nonmedicinal substance allergy status
CPT/HCPCS: 99284; 96360; 80053; 85025